=== PATIENT | female | born 1980 | race Caucasian/White ===

== ENCOUNTER 2022-11-06 10:14 | Emergency (ER) | payer OTHER, SELFPAY ==
[2022-11-06 10:46] VITALS: BP 118/74; PULSE 82; RESP 16; TEMP 36.6; O2SAT 97; BMI 26.5
[2022-11-06 11:19] VITALS: BP 135/84; PULSE 82; RESP 16; O2SAT 98
--- NOTE | 2022-11-06 11:19 | ED.SKABFB ---
HPI - Skin/Abscess/Foreign Bdy General Chief complaint: Skin/Abscess/Foreign Body Stated complaint: facial swelling Time Seen by Provider: 11/06/22 11:17 Source: patient, RN notes reviewed and old records reviewed Mode of arrival: ambulatory History of Present Illness HPI narrative: 41-year-old female with no significant past medical history presenting to the ED complaining of abscess to forehead noted 2 days ago, was seen at urgent care yesterday prescribed Keflex which she has taken 2 doses of however reports worsening discomfort/swelling noted this morning. Reports pus drainage from area. Denies fever/chills, headache, nausea/vomiting Related Data Previous Rx's Medication Instructions Recorded doxycycline hyclate 100 mg tablet 100 mg PO BID 7 days #14 tabs 11/06/22 Allergies Allergy/AdvReac Type Severity Reaction Status Date / Time No Known Allergies Allergy Verified 11/06/22 11:50 Review of Systems Review of Systems: Constitutional: No Fever, No Chills ENT/Mouth: No Ear Pain, No Nasal Congestion, No Sinus Pain, No Hoarseness, No sore throat, No Rhinorrhea, No Swallowing Difficulty Cardiovascular: No Chest Pain, No SOB Respiratory: No Cough, No Sputum, No Wheezing Gastrointestinal: No Nausea, No Vomiting, No Abdominal pain Musculoskeletal: No joint pain, No Myalgias, No Joint Swelling Skin: + Skin Lesions, No rash Neuro: No Weakness Yes all other systems are reviewed and are negative Constitutional: Constitutional: Reports as per HPI [facility] Past Medical History Attestation statement: The following information was validated with the patient. Source: old records reviewed Social History Social History (System 11/06/22 @ 11:50 by Maye Obregon) Smoked in Last 30 Days: No Use of substances other than those prescribed or required for medical reasons: No Advance Directives: No Physical Exam Vital Signs: Vital Signs: Last Vital Signs Temp 97.9 F 11/06/22 10:46 Pulse 82 11/06/22 11:19 Resp 16 11/06/22 11:19 BP 135/84 11/06/22 11:19 Pulse Ox 98 11/06/22 11:19 O2 Del Method Room Air 11/06/22 11:19 BMI result Body Mass Index 26.5 Const: General: cooperative, healthy appearing and no acute distress Orientation/consciousness: patient oriented x3 Limitations: no limitations HEENT: Head: Yes normal to inspection and Yes atraumatic Ears: hearing grossly normal bilaterally General nose exam: Normal external nose present Face and sinus: Yes normal facial exam Eyes: General: appearance normal, both eyes and all related structures Neck: Neck: Yes normal visual inspection and Yes no meningeal signs Resp: Effort & Inspection: normal respiratory effort and no respiratory distress Cardio: Rate: regular rate Skin: Other: + small indurated abscess noted to central upper forehead at hairline with mild surrounding swelling. Mildly tender to palpation. No fluctuance, surrounding erythema, no active drainage. No crepitus Rashes: no rashes Neuro: General: patient oriented x3, tone normal and no meningeal signs Gait exam (Neuro): Normal gait present Extrem: General: Yes normal to inspection Medications Administered Discontinued Medications Generic Name Dose Route Start Last Admin Trade Name Freq PRN Reason Stop Dose Admin Doxycycline Monohydrate 100 mg 11/06/22 11:33 11/06/22 11:53 Doxycycline Monohydrate 100 Mg Capsule PO 11/06/22 11:34 100 mg ONCE ONE Administration Ketorolac Tromethamine 30 mg 11/06/22 11:33 11/06/22 11:53 Ketorolac Tromethamine 30 Mg/Ml Vial IM 11/06/22 11:34 30 mg ONCE ONE Administration Medical Decision Making Medical Decision Making [facility] Narrative: 41-year-old female with no significant past medical history presenting to the ED complaining of abscess to forehead noted 2 days ago, was seen at urgent care yesterday prescribed Keflex which she has taken 2 doses of however reports worsening discomfort/swelling noted this morning. On exam vital signs stable, NAD, nontoxic appearing with physical exam as noted above with small indurated abscess to upper forehead. No need for I&D at this time. No appreciable cellulitis/erythema. Mild swelling. Low concern for deeper infection. Will add doxycycline to her regimen Results discussed with patient including worrisome signs and symptoms and strict return precautions, and when to return to the emergency department. They verbalized understanding and feel safe for discharge at this time. Differential Diagnosis Differential Diagnoses: The differential diagnosis associated with the presentation includes As above External Record Review External record reviewed: Inpatient record, Office record, Outpatient record, Prior outpatient labs, Prior outpatient radiology, Primary care record and Outside ED record Tests considered The following testing was considered but not selected: As above Prescription Management I considered prescription management with: Pain Medication and Antibiotic Discharge Plan Discharge Clinical Impression: Abscess of skin or subcutaneous tissue Patient Disposition: Home, Self-Care Instructions: Abscess (ED) Additional Instructions: Continue taking previously prescribed antibiotic, in addition start taking doxycycline Avoid the sun while on doxycycline/wear good sun block at this will make you sensitive to the sun Apply warm compresses to area If symptoms persist or worsen return to the ED Prescriptions: New doxycycline hyclate 100 mg tablet 100 mg PO BID 7 Days Qty: 14 0RF Referrals: Makayla Verma PA-C [Primary Care Provider] - 3 days Interventions: ED Discharge Assessment Last Done: 11/06/22 12:02 Discharge Date/Time: 11/06/22 12:03
[2022-11-06] MEDS: Doxycycline Monohydrate 100 MG CAPSULE PO (11:53)
[2022-11-06] MEDS: Ketorolac Tromethamine 30 MG/ML VIAL IM (11:53)
== END 2022-11-06 12:03 | disposition home or self-care (01) ==
PROVIDERS: Emergency Provider Emergency Medicine Emergency Medical Services; PCP Physician Assistant
DX: L02.01 Cutaneous abscess of face (principal); Z79.899 Other long term (current) drug therapy
CPT/HCPCS: 96372; 99284; J1885

== ENCOUNTER 2022-12-30 15:32 | Emergency (ER) | payer OTHER, SELFPAY ==
--- NOTE | ~2022-12-30 | CT_ITS ---
EXAMINATION: CT ABDOMEN AND PELVIS WITHOUT CONTRAST CLINICAL INFORMATION: Right lower quadrant pain COMPARISON: None available. TECHNIQUE: Multidetector volumetric imaging was performed from the superior aspect of the liver through the pubic symphysis. Sagittal and coronal reformatted images were obtained on the technologist's workstation. This CT examination was performed using dose optimization techniques as appropriate, variously including the following: *Automated exposure control *Adjustment of mA and/or kV according to patient size (this includes techniques or standardized protocols for targeted exams where dose is matched to indication/reason for exam; i.e. extremities or head) *Use of iterative reconstruction technique DLP: 400 mGy-cm FINDINGS: LUNG BASES: The visualized lung bases are unremarkable. LIVER, GALLBLADDER, AND BILIARY TREE: The liver is normal in size, shape, and attenuation. No focal hepatic lesion or biliary ductal dilatation is present. The gallbladder is unremarkable with no evidence of radiopaque gallstones, gallbladder wall thickening, or obvious pericholecystic inflammatory changes. PANCREAS: Unremarkable. SPLEEN: Unremarkable. ADRENAL GLANDS: Unremarkable. KIDNEYS AND URETERS: The kidneys are normal in size, shape, and attenuation. 4 mm stone in the lower pole the left kidney. No hydronephrosis. Normal right kidney. BLADDER: Unremarkable. GASTROINTESTINAL TRACT: The small and large bowel are unremarkable. The appendix is not seen. ABDOMINAL WALL: No significant hernia is appreciated. LYMPH NODES: Normal. VASCULAR: Unremarkable. PELVIC VISCERA: There is a complex partially solid partially cystic mass in the pelvis that measures approximately 6.6 cm. This is high attenuation. This is located centrally in the midline pelvis. More superiorly and to the right is a second 1.8 x 3.2 cm high attenuation soft tissue mass. There is a small amount of complex fluid seen in the pelvis. Hemorrhagic ovarian cyst, ovarian torsion and PID/ovarian abscess should be considered. The appendix is not identified and possible appendicitis with secondary pelvic abscess cannot be completely excluded. Follow-up pelvic ultrasound recommended. OSSEOUS STRUCTURES: Unremarkable. CT/CT abdomen pelvis wo IV con IMPRESSION: Complex partially solid partially cystic high attenuation mass in the pelvis measuring 6.6 cm and 1.8 x 3.2 cm. There is a small amount of complex fluid in the pelvis. Differential would include ovarian torsion, hemorrhagic ovarian cyst and PID/ovarian abscess. The appendix is not seen and possible periappendiceal abscess cannot be excluded. Follow-up pelvic ultrasound recommended with Doppler to exclude ovarian torsion. Small left renal stone. Fleischner guidelines were followed.
--- NOTE | ~2022-12-30 | US_ITS ---
EXAMINATION: US PELVIS OVARIAN DOPPLER US PELVIC AND TRANSVAGINAL CLINICAL INFORMATION: Right lower quadrant pain. Follow up pelvic mass. COMPARISON: Previous CT of the abdomen and pelvis from earlier the same day. TECHNIQUE: Ultrasound of the pelvis is performed using both transabdominal and transvaginal transducers along with Doppler. Transvaginal imaging is performed due to inadequate visualization transabdominally. FINDINGS: The uterus is surgically absent. There is a complex partially solid, partially cystic mass in the midline pelvis. This measures at least 7 x 5 x 6 cm. The solid component does not have flow and is concerning for an enlarged torsed ovary with cystic changes. It is uncertain whether this represents the right or left ovary. No fluid in the pelvis is appreciated by ultrasound. US/US pelvic ovarian doppler IMPRESSION: Complex partially solid, partially cystic mass with no flow. Appearance is concerning for a torsed ovary. Findings were communicated to Dr Summers by telephone on 12/30/2022 at 2138 hours
--- NOTE | ~2022-12-30 | US_ITS ---
EXAMINATION: US PELVIS OVARIAN DOPPLER US PELVIC AND TRANSVAGINAL CLINICAL INFORMATION: Right lower quadrant pain. Follow up pelvic mass. COMPARISON: Previous CT of the abdomen and pelvis from earlier the same day. TECHNIQUE: Ultrasound of the pelvis is performed using both transabdominal and transvaginal transducers along with Doppler. Transvaginal imaging is performed due to inadequate visualization transabdominally. FINDINGS: The uterus is surgically absent. There is a complex partially solid, partially cystic mass in the midline pelvis. This measures at least 7 x 5 x 6 cm. The solid component does not have flow and is concerning for an enlarged torsed ovary with cystic changes. It is uncertain whether this represents the right or left ovary. No fluid in the pelvis is appreciated by ultrasound. US/US pelvic and transvaginal IMPRESSION: Complex partially solid, partially cystic mass with no flow. Appearance is concerning for a torsed ovary. Findings were communicated to Dr Summers by telephone on 12/30/2022 at 2138 hours
--- NOTE | 2022-12-30 15:51 | ED_ITS ---
HPI - General Adult General Chief complaint: Abdominal Pain Stated complaint: Abdominal pain Time Seen by Provider: 12/30/22 21:25 Source: patient Mode of arrival: ambulatory Limitations: no limitations History of Present Illness HPI narrative: patient 42 years old with no significant past medical history noticed pain in right lower quadrant and suprapubic pain about 1 week ago when she was visiting [facility] was very severe pain felt like labor pain went to the urgent care did the x-ray and labs and sent her home after morphine patient vomited after morphine injection had nausea off and on and loose bowels no fever no chills no urinary symptoms pain got slightly improved but still having the pain patient came back yesterday and came here today because of the ongoing pain no fever no chills no vaginal bleed no history of ovarian cyst no relation of pain with food patient had hysterectomy for fibroids in 2019 Related Data Previous Rx's Medication Instructions Recorded doxycycline hyclate 100 mg tablet 100 mg PO BID 7 days #14 tabs 11/06/22 Allergies Allergy/AdvReac Type Severity Reaction Status Date / Time No Known Allergies Allergy Verified 12/30/22 15:56 Review of Systems 2 Review of Systems: Yes all other systems are reviewed and are negative [facility] Social History Social History Alcohol intake: current Alcohol intake frequency: holidays/special occasions only Physical Exam ED Vital Signs: Vital Signs - 24 hr 12/30/22 15:56 12/30/22 21:26 Temperature 97.5 F 99.2 F Pulse Rate 76 69 Respiratory Rate 18 16 Blood Pressure 124/82 115/76 Pulse Oximetry 99 99 Oxygen Delivery Method Room Air Room Air BMI result Body Mass Index 26.5 Appearance: Alert. Oriented X3. No acute distress. Eyes: PERRLA, No Nystagmus ENT: Pharynx normal. Oral Mucosa moist Neck: Normal inspection. Neck supple. CVS: Normal heart rate and rhythm. Pulses normal. Respiratory: No respiratory distress. Equal air entry bilateral, no wheezing/rales/rhonchi Abdomen: Soft tender suprapubic and right lower quadrant with guarding Bowel sounds are present, no mass palpable, no CVA tenderness Skin: Skin warm and dry. Normal skin color. Normal skin turgor. Extremities: No lower extremity edema. No calf tenderness Neuro: Oriented X 3. No motor deficit. No sensory deficit.No cerebellar signs , cranial nerves II-XII intact Course Course Course Narrative: This is an RME: Additional HPI, ROS, PE not included below will be deferred to primary provider. 42 year old female presenting with abdominal pain for one week. Patient recently returned from [facility]. Patinet reports it was right lower quadrant pain radiating to the back but now it is more in the lower abdomen. Plan: imaging Medications Administered Discontinued Medications Generic Name Dose Route Start Last Admin Trade Name J Carlos PRN Reason Stop Dose Admin Sodium Chloride 1,000 mls @ 999 mls/hr 12/30/22 21:40 12/30/22 22:58 Ns IV 12/30/22 22:40 999 mls/hr .Q1H1M ONE Administration Morphine Sulfate 4 mg 12/30/22 21:50 12/30/22 22:58 Morphine Sulfate 4 Mg/Ml Cartridge IVPUSH 12/30/22 21:51 4 mg ONCE ONE Administration Protocol Ondansetron HCl 4 mg 12/30/22 21:50 12/30/22 22:58 Ondansetron Hcl 4 Mg/2 Ml Vial IVPUSH 12/30/22 21:51 4 mg ONCE ONE Administration Medical Decision Making Medical Decision Making [facility] Narrative: 10 pm patient with right lower abdominal, suprapubic pain onset about 7 days ago workup showed possible torsion as there is no blood flow seen in the right ovary showed a complex partially solid and partially cystic mass 7x5x6 [address] case [address] Austin PACE not sure it just the plain ovarian torsion suspecting malignancy because of solid component of the cyst. Would like the patient to go to tertiary center for further evaluation and surgery case discussed with Dr. Vega at [facility] [place] accepted the patient for transfer Differential Diagnosis Differential Diagnoses: The differential diagnosis associated with the presentation includes ovarian torsion /ovarian cyst/appendicitis Admission/Observation Consideration of admission/observation: Escalation of care including admission/observation considered Consult Healthcare Provider Management of the patient was discussed with: Drafter Marine Dr. Avila came to see the patient Lab Data [facility] Lab Attestation statement: I reviewed the patient's lab results. 12/30/22 16:28 12/30/22 16:28 Labs: Lab Results 12/30/22 12/30/22 12/30/22 Range/Units 16:28 16:28 16:28 WBC 9.5 (4.8-10.8) X10*3/uL RBC 3.80 L (4.20-5.50) X10*6/uL Hgb 11.5 L (12.0-16.0) g/dl Hct 33.3 L (37.0-47.0) % MCV 87.6 (80.0-98.0) fL MCH 30.3 (27.0-33.0) pg MCHC 34.5 (31.0-35.0) g/dl RDW 13.2 (11.0-16.0) % Plt Count 403 H (160-400) X10*3/uL MPV 10.1 (9.4-12.3) fL Immature Gran % (Auto) 0.5 H (0.0-0.4) % Neut % (Auto) 75.5 H (45-73) % Lymph % (Auto) 15.2 L (20-40) % [place] % (Auto) 7.6 (2-11) % Eos % (Auto) 0.9 (0-4) % Baso % (Auto) 0.3 (0-2) % Lymph # (Auto) 1.5 (1.2-4.9) X10*3/uL [place] # (Auto) 0.7 (0.1-1.2) X10*3/uL Eos # (Auto) 0.1 (0.0-0.4) X10*3/uL Baso # (Auto) 0.0 (0.0-0.2) X10*3/uL Abs Immat Gran (auto) 0.05 H (0.00-0.03) X10*3/uL Absolute Neuts (auto) 7.2 (2.0-8.3) x10*3/uL Absolute Nucleated RBC 0.000 (0.0-0.012) X10*3/uL Nucleated RBC % (auto) 0.0 (0.0-0.2) /100WBC PT (11.1-13.3) SEC INR (0.9-1.1) Sodium 139 (135-145) mmol/L Potassium 3.9 (3.3-5.1) mmol/L Chloride 109 H (96-108) mmol/L Carbon Dioxide 22 (22-29) mmol/L Anion Gap 12 (12-20) BUN 13 (9-16) mg/dL Creatinine 0.84 (0.5-1.4) mg/dL Estim Creat Clear Calc 76.8 Estimated GFR > 60 Random Glucose 88 (60-115) mg/dL Lactic Acid (0.5-2.0) mmol/L Calcium 9.6 (8.4-10.2) mg/dL Magnesium 1.9 1.8 (1.6-2.6) mg/dL Total Bilirubin 0.6 (0.0-1.0) mg/dL AST 12 (5-31) U/L ALT 12 (0-31) U/L Alkaline Phosphatase 75 (39-117) U/L Total Protein 7.5 (6.5-8.0) g/dL Albumin 4.0 (3.5-5.0) g/dL Lipase 23 24 (8-78) U/L Beta HCG, Quant < 2 mIU/mL Blood Type Antibody Screen 12/30/22 12/30/22 12/30/22 Range/Units 21:58 21:58 22:09 WBC (4.8-10.8) X10*3/uL RBC (4.20-5.50) X10*6/uL Hgb (12.0-16.0) g/dl Hct (37.0-47.0) % MCV (80.0-98.0) fL MCH (27.0-33.0) pg MCHC (31.0-35.0) g/dl RDW (11.0-16.0) % Plt Count (160-400) X10*3/uL MPV (9.4-12.3) fL Immature Gran % (Auto) (0.0-0.4) % Neut % (Auto) (45-73) % Lymph % (Auto) (20-40) % [place] % (Auto) (2-11) % Eos % (Auto) (0-4) % Baso % (Auto) (0-2) % Lymph # (Auto) (1.2-4.9) X10*3/uL [place] # (Auto) (0.1-1.2) X10*3/uL Eos # (Auto) (0.0-0.4) X10*3/uL Baso # (Auto) (0.0-0.2) X10*3/uL Abs Immat Gran (auto) (0.00-0.03) X10*3/uL Absolute Neuts (auto) (2.0-8.3) x10*3/uL Absolute Nucleated RBC (0.0-0.012) X10*3/uL Nucleated RBC % (auto) (0.0-0.2) /100WBC PT 14.2 H (11.1-13.3) SEC INR 1.2 H (0.9-1.1) Sodium (135-145) mmol/L Potassium (3.3-5.1) mmol/L Chloride (96-108) mmol/L Carbon Dioxide (22-29) mmol/L Anion Gap (12-20) BUN (9-16) mg/dL Creatinine (0.5-1.4) mg/dL Estim Creat Clear Calc Estimated GFR Random Glucose (60-115) mg/dL Lactic Acid 0.9 (0.5-2.0) mmol/L Calcium (8.4-10.2) mg/dL Magnesium (1.6-2.6) mg/dL Total Bilirubin (0.0-1.0) mg/dL AST (5-31) U/L ALT (0-31) U/L Alkaline Phosphatase (39-117) U/L Total Protein (6.5-8.0) g/dL Albumin (3.5-5.0) g/dL Lipase (8-78) U/L Beta HCG, Quant mIU/mL Blood Type O Positive Antibody Screen NEGATIVE Radiology Impression Discussion of test interpretation with radiology: I discussed test interpretation with the radiologist and I have reviewed the radiologist's reading. Radiologist Impression: [address] [address] Ultrasound Report Signed Patient: Nneka Pelaez MR#: [id number] : 1980 Acct:[id number] Age/Sex: 42 / F ADM Date: 12/30/22 Loc: .ED Attending Dr: Ordering Physician: Naina Stark CNP Date of Service: 12/30/22 Procedure(s): US pelvic and transvaginal Accession Number(s): [id number] cc: Naina Stark CNP; Makayla Verma PA-C~ EXAMINATION:? US PELVIS OVARIAN DOPPLER US PELVIC AND TRANSVAGINAL CLINICAL INFORMATION:? Right lower quadrant pain. Follow up pelvic mass. COMPARISON: Previous CT of the abdomen and pelvis from earlier the same day. TECHNIQUE: Ultrasound of the pelvis is performed using both transabdominal and transvaginal transducers along with Doppler. Transvaginal imaging is performed due to inadequate visualization transabdominally. FINDINGS: The uterus is surgically absent. There is a complex partially solid, partially cystic mass in the midline pelvis. This measures at least 7 x 5 x 6 cm. The solid component does not have flow and is concerning for an enlarged torsed ovary with cystic changes. It is uncertain whether this represents the right or left ovary. No fluid in the pelvis is appreciated by ultrasound. US/US pelvic and transvaginal IMPRESSION: Complex partially solid, partially cystic mass with no flow. Appearance is concerning for a torsed ovary. ? Findings were communicated to Dr Smumers by telephone on 12/30/2022 at 2138 hours Dictated By: Tiffany Moses MD Signed By: <Electronically signed by Tiffany Moses MD in OV> 12/30/222147 DD/ 48 TD/TT:? Picc Nurse: [place] [id number] CT Scan Report Signed with Addenda Patient: Nneka Pelaez MR#: [id number] : 1980 Acct:[id number] Age/Sex: 42 / F ADM Date: 12/30/22 Loc: HO.ED Attending Dr: Ordering Physician: Dillan Jewell Date of Service: 12/30/22 Procedure(s): CT abdomen pelvis wo IV con Accession Number(s): [id number] cc: Dillan Jewell; Makayla Verma PA-C~ ADDENDUMAddendum: Findings were communicated to SALVADOR Rodas by telephone on 12/30/2022 at 8:00 PM. Addendum Dictated By: Tiffany Moses MD Addendum Signed By: 12/30/222009 Addendum Cosigned By: DD/ /16/1556 TD/TT: / EXAMINATION: CT ABDOMEN AND PELVIS WITHOUT CONTRAST? CLINICAL INFORMATION: Right lower quadrant pain? COMPARISON: None available. TECHNIQUE: Multidetector volumetric imaging was performed from the superior aspect of the liver through the pubic symphysis. Sagittal and coronal reformatted images were obtained on the technologist's workstation.? This CT examination was performed using dose optimization techniques as appropriate, variously including the following: *Automated exposure control *Adjustment of mA and/or kV according to patient size (this includes techniques or standardized protocols for targeted exams where dose is matched to indication/reason for exam; i.e. extremities or head) *Use of iterative reconstruction technique DLP: 400 mGy-cm FINDINGS: LUNG BASES: The visualized lung bases are unremarkable.? LIVER, GALLBLADDER, AND BILIARY TREE: The liver is normal in size, shape, and attenuation. No focal hepatic lesion or biliary ductal dilatation is present. The gallbladder is unremarkable with no evidence of radiopaque gallstones, gallbladder wall thickening, or obvious pericholecystic inflammatory changes.? PANCREAS: Unremarkable.? SPLEEN: Unremarkable.? ADRENAL GLANDS: Unremarkable.? KIDNEYS AND URETERS: The kidneys are normal in size, shape, and attenuation. 4 mm stone in the lower pole the left kidney. No hydronephrosis. Normal right kidney.? BLADDER: Unremarkable.? GASTROINTESTINAL TRACT: The small and large bowel are unremarkable. The appendix is not seen.? ABDOMINAL WALL: No significant hernia is appreciated.? LYMPH NODES: Normal. VASCULAR: Unremarkable. PELVIC VISCERA: There is a complex partially solid partially cystic mass in the pelvis that measures approximately 6.6 cm. This is high attenuation. This is located centrally in the midline pelvis. More superiorly and to the right is a second 1.8 x 3.2 cm high attenuation soft tissue mass. There is a small amount of complex fluid seen in the pelvis. Hemorrhagic ovarian cyst, ovarian torsion and PID/ovarian abscess should be considered. The appendix is not identified and possible appendicitis with secondary pelvic abscess cannot be completely excluded. Follow-up pelvic ultrasound recommended. OSSEOUS STRUCTURES: Unremarkable.? CT/CT abdomen pelvis wo IV con IMPRESSION: Complex partially solid partially cystic high attenuation mass in the pelvis measuring 6.6 cm and 1.8 x 3.2 cm. There is a small amount of complex fluid in the pelvis. Differential would include ovarian torsion, hemorrhagic ovarian cyst and PID/ovarian abscess. The appendix is not seen and possible periappendiceal abscess cannot be excluded. Follow-up pelvic ultrasound recommended with Doppler to exclude ovarian torsion. Small left renal stone. ? Fleischner guidelines were followed. Dictated By: Tiffany Moses MD Signed By: <Electronically signed by Tiffany Moses MD in OV> 12/30/221955 DD/ 17 TD/TT:? Picc Nurse: GOKUL Critical Care Time Critical Care Time Critical Care Time: Yes Total Critical Care Time: 45 Attestation: The patient was critically ill with a high probability of imminent or life threatening deterioration. I spent greater than 50 minutes of discontinuous time evaluating the patient,delivering critical care at the bedside, discussing and evaluating pertinent data with consultants. Critical care time does not include time spent performing separately billable procedures or teaching. Total time spent performing critical care was 45 minutes. Discharge Plan Discharge Clinical Impression: Ovarian torsion Patient Disposition: Xfer [facility] Transfer Details: [facility] [place] Wetu under Dr. Putnam for ovarian torsion Prescriptions: No Action doxycycline hyclate 100 mg tablet 100 mg PO BID 7 Days Qty: 14 0RF Interventions: Acute Care Transfer Worksheet (ED) Last Done: 12/30/22 23:35 Discharge Date/Time: 12/30/22 23:42
[2022-12-30 15:56] VITALS: BP 124/82; PULSE 76; RESP 18; TEMP 36.4; O2SAT 99; BMI 26.5
[2022-12-30 16:32] LABS: MANUAL DIFF FLAG NO
[2022-12-30 16:51] LABS: Alanine Aminotransferase 12 U/L (0-31); Alkaline Phosphatase 75 U/L (39-117); Anion Gap 12 (12-20); Aspartate Amino Transferase 12 U/L (5-31); Bilirubin Total 0.6 mg/dL (0.0-1.0); Blood Urea Nitrogen 13 mg/dL (9-16); Calcium 9.6 mg/dL (8.4-10.2); Carbon Dioxide 22 mmol/L (22-29); Chloride 109 mmol/L (96-108); Creatinine Clr Calc Pharmacy 76.8; Estimated Glomerular Filt Rate > 60; Glucose Random 88 mg/dL (60-115); Lipase 23 U/L (8-78); Magnesium 1.9 mg/dL (1.6-2.6); Potassium 3.9 mmol/L (3.3-5.1); Sodium 139 mmol/L (135-145); Total Protein 7.5 g/dL (6.5-8.0)
[2022-12-30 16:57] LABS: Lipase 24 U/L (8-78); Magnesium 1.8 mg/dL (1.6-2.6)
[2022-12-30 16:58] LABS: Basophils Percent Auto 0.3 % (0-2); Eosinophils Absolute Auto 0.1 X10*3/uL (0.0-0.4); Eosinophils Percent Auto 0.9 % (0-4); Hematocrit 33.3 % (37.0-47.0); Hemoglobin 11.5 g/dl (12.0-16.0); Imm Gran Abs Auto 0.05 X10*3/uL (0.00-0.03); Imm Gran Pct Auto 0.5 % (0.0-0.4); Lymphocytes Absolute Auto 1.5 X10*3/uL (1.2-4.9); Lymphocytes Percent Auto 15.2 % (20-40); Mean Corpuscular HGB Conc 34.5 g/dl (31.0-35.0); Mean Corpuscular Hemoglobin 30.3 pg (27.0-33.0); Mean Corpuscular Volume 87.6 fL (80.0-98.0); Mean Platelet Volume 10.1 fL (9.4-12.3); Monocytes Absolute Auto 0.7 X10*3/uL (0.1-1.2); Monocytes Percent Auto 7.6 % (2-11); Neutrophils Absolute Auto 7.2 x10*3/uL (2.0-8.3); Neutrophils Percent Auto 75.5 % (45-73); Platelet Count 403 X10*3/uL (160-400); Red Cell Distribution Width 13.2 % (11.0-16.0); White Blood Count 9.5 X10*3/uL (4.8-10.8)
[2022-12-30 17:03] LABS: HCG Quantitative < 2 mIU/mL
[2022-12-30 21:26] VITALS: BP 115/76; PULSE 69; RESP 16; TEMP 37.3; O2SAT 99
--- NOTE | 2022-12-30 21:56 | P.CONOB_ITS ---
COTTON HEADER - CN: HPI Data of Consult Consult date: 12/30/22 Primary Care Provider: Makayla Verma PA-C Consult Narrative Narrative: I was consulted on Nneka Pelaez is a 42 year old female presenting to the emergency room with? pain in the right lower quadrant and suprapubic pain about 1 week duration when the patient was in [facility] she developed acute very severe LV pain, she went to an urgent care where she had image and labs and was discharged home after morphine, since then the patient has been having persistent pelvic pain associated with nausea and vomiting off and on and loose bowels with no fever or chills, no other GI or symptom, no vaginal discharge cc:: CC: OB [facility] Social History Social History Alcohol intake: current Alcohol intake frequency: holidays/special occasions only Smoked in Last 30 Days: No Use of substances other than those prescribed or required for medical reasons: No Advance Directives: No Advance Directives Information Provided: Yes Patient : No Meds Allergies Allergy/AdvReac Type Severity Reaction Status Date / Time No Known Allergies Allergy Verified 12/30/22 15:56 Active Medications: Current Medications Sodium Chloride (Ns) 1,000 mls @ 999 mls/hr IV .Q1H1M ONE Stop: 12/30/22 22:40 COTTON HEADER Physical Exam Vitals Vital signs: Temp Pulse Resp BP Pulse Ox O2 Del Method 99.2 F 69 16 115/76 99 Room Air 12/30/22 21:26 12/30/22 21:26 12/30/22 21:26 12/30/22 21:26 12/30/22 21:26 12/30/22 21:26 BMI result Body Mass Index 26.5 Abdomen Auscultation/Inspection/Palpation: Tenderness, Guarding and Rebound tenderness Female Genitalia (Pelvic) Exam: Deferred COTTON HEADER - Results Labs 12/30/22 16:28 12/30/22 16:28 Labs: Short CBC 12/30/22 Range/Units 16:28 WBC 9.5 (4.8-10.8) X10*3/uL Hgb 11.5 L (12.0-16.0) g/dl Hct 33.3 L (37.0-47.0) % Plt Count 403 H (160-400) X10*3/uL BMP 12/30/22 16:28 Sodium 139 Potassium 3.9 Chloride 109 H Carbon Dioxide 22 BUN 13 Creatinine 0.84 Calcium 9.6 Liver Function 12/30/22 Range/Units 16:28 Total Bilirubin 0.6 (0.0-1.0) mg/dL AST 12 (5-31) U/L ALT 12 (0-31) U/L Alkaline Phosphatase 75 (39-117) U/L Albumin 4.0 (3.5-5.0) g/dL Imaging CT scan - pelvis: Radiologist's impression: ITS Impressions Abdomen/Pelvis CT 12/30/22 19:18 IMPRESSION: Complex partially solid partially cystic high attenuation mass in the pelvis measuring 6.6 cm and 1.8 x 3.2 cm. There is a small amount of complex fluid in the pelvis. Differential would include ovarian torsion, hemorrhagic ovarian cyst and PID/ovarian abscess. The appendix is not seen and possible periappendiceal abscess cannot be excluded. Follow-up pelvic ultrasound recommended with Doppler to exclude ovarian torsion. Small left renal stone. Fleischner guidelines were followed. Doppler Study Ultrasound 12/30/22 20:49 IMPRESSION: Complex partially solid, partially cystic mass with no flow. Appearance is concerning for a torsed ovary. Findings were communicated to Dr Summers by telephone on 12/30/2022 at 2138 hours Pelvic/Transvag US 12/30/22 20:49 IMPRESSION: Complex partially solid, partially cystic mass with no flow. Appearance is concerning for a torsed ovary. Findings were communicated to Dr Summers by telephone on 12/30/2022 at 2138 hours Assessment and Plan (1) Ovarian torsion: Status: Acute Plan Discussed the patient the following: Ultrasound showed 7 cm ovarian mass complex with cystic and solid components. The differential diagnosis includes the following but not limited to: benign and malignant ovarian neoplasm. Since there is no ovarian flow and there is suspicion of ovarian torsion, and given the findings on the abdominal exam including significant tenderness, rebound and guarding, I recommend surgical intervention liliam. Per ACOG guidelines, when a patient with a suspicious or persistent complex adnexal mass requires surgical evaluation, a physician trained to appropriately stage and debulk ovarian cancer should perform the operation. Surgical exploration should be performed in a hospital facility that has the necessary support and consultative services to optimize the patient?s outcome. When a malignant ovarian tumor is discovered incidentally, a gynecologic oncologist should be consulted intraoperatively. Because there is no gynecologic oncologist available on staff at [facility] , I recommend to be transferred liliam to [facility] or any other tertiary care center given the urgency of the clinical situation, where during surgery there is immediate access to a gynecologic oncologist intraoperatively in case there was any suspicion or evidence of malignancy. All questions answered, the patient verbalized understanding and agreed with the plan. Discussed the case with Dr. Summers Time Spent With Patient Time: Total time managing care of this patient today ____ minutes.
[2022-12-30 22:12] LABS: INTERNATIONAL NORM RATIO 1.2 (0.9-1.1); Prothrombin Time 14.2 SEC (11.1-13.3)
[2022-12-30 22:26] LABS: Lactic Acid 0.9 mmol/L (0.5-2.0)
[2022-12-30] MEDS: Morphine Sulfate 4 MG/ML CARTRIDGE IVPUSH (22:58)
[2022-12-30] MEDS: ondansetron HCL 4 MG/2 ML VIAL IVPUSH (22:58)
[2022-12-30] MEDS: 0.9 % Sodium Chloride 1,000 ML 999 ML IV (22:58)
--- NOTE | 2022-12-30 23:02 | PC.NURSE ---
20g IV access in left AC established. Intact and patent. Pt reports pain 5/10 at this time. Medications administer as per JUN. Labs drawn. awaiting EMS for transport to [facility]
--- NOTE | 2022-12-30 23:41 | PC.NURSE ---
Nurse to Nurse given to TYRONE Dobbs at [facility] at [facility].
== END 2022-12-30 23:42 | disposition short-term general hospital (02) ==
PROVIDERS: Physician Assistant; Emergency Provider Internal Medicine; PCP Physician Assistant
DX: N83.511 Torsion of right ovary and ovarian pedicle (principal); R10.31 Right lower quadrant pain; R11.2 Nausea with vomiting, unspecified; R10.2 Pelvic and perineal pain; Z79.899 Other long term (current) drug therapy
CPT/HCPCS: 36415; 74176; 76830; 76856; 80053; 83605; 83690; 83735; 84702; 85025; 85610; 86850; 86900; 86901; 93975; 96374; 96375; 99285; J2270; J2405

== ENCOUNTER → 2022-12-30 16:29 | Outpatient (BNV) | payer OTHER, SELFPAY | PROVIDERS: Emergency Provider Internal Medicine; PCP Physician Assistant; Visit Provider Obstetrics & Gynecology | DX: N83.519 Torsion of ovary and ovarian pedicle, unspecified side (principal) | CPT/HCPCS: 99283 ==

== ENCOUNTER 2023-05-13 10:22 | Emergency (ER) | payer BC, SELFPAY ==
--- NOTE | 2023-05-13 | ECG_ITS ---
Test Reason : PALPATATIONS Blood Pressure : / mmHG Vent. Rate : 072 BPM Atrial Rate : 072 BPM P-R Int : 142 ms QRS Dur : 092 ms QT Int : 400 ms P-R-T Axes : 040 035 013 degrees QTc Int : 438 ms Normal sinus rhythm Normal ECG No previous ECGs available Referred By: Generic ED Physician Electronically Signed By:GUILLAUME BOWSER
--- NOTE | ~2023-05-13 | XR_ITS ---
EXAMINATION: XR CHEST CLINICAL INFORMATION: Shortness of breath, chest pain COMPARISON: None available. TECHNIQUE: 2 views of the chest were obtained. FINDINGS: vascularity. LUNGS: Lungs are clear. No pneumothorax is seen. BONES: Bony skeleton is intact. XR/XR chest 2V IMPRESSION: Normal chest x-ray.
--- NOTE | ~2023-05-13 | CT_ITS ---
EXAMINATION: CT ANGIOGRAM OF THE CHEST WITH AND WITHOUT CONTRAST (CT PULMONARY ANGIOGRAM FOR PE) CLINICAL INFORMATION: Reason for Exam exertional dyspnea. Palpitations. cp. Elevated dimer COMPARISON: None available. TECHNIQUE: Prior to contrast administration, noncontrast localization images were obtained. Subsequently, multidetector volumetric imaging was performed from the thoracic inlet to below the diaphragms following the administration of 65 mL Omnipaque 350 intravenous contrast. No contrast reaction reported Sagittal, coronal, and MIP oblique sagittal reformatted images were obtained on the CT workstation, uploaded to PACS, and reviewed. This CT examination was performed using dose optimization techniques as appropriate, variously including the following: *Automated exposure control *Adjustment of mA and/or kV according to patient size (this includes techniques or standardized protocols for targeted exams where dose is matched to indication/reason for exam; i.e. extremities or head) *Use of iterative reconstruction technique Total exam dose-length product 218 mGy-cm FINDINGS: QUALITY OF STUDY/CONTRAST BOLUS: Satisfactory. PULMONARY ARTERIES: No pulmonary emboli. Main pulmonary arteries are normal caliber THORACIC AORTA: No aneurysm. No coronary calcification demonstrated LUNG: No abnormality the central airways. No consolidation or edema. PLEURA: No pleural effusion or pneumothorax. MEDIASTINUM: There are no enlarged lymph nodes. No suspicious abnormality esophagus. No evidence of septal bowing or right heart strain. CORONARY ARTERY CALCIFICATION: None visualized on this study. CHEST WALL/AXILLA: No axillary or internal mammary lymphadenopathy. OSSEOUS STRUCTURES: No acute or suspicious osseous abnormality. UPPER ABDOMEN: There is a round low attenuating 2.5 cm mass in the posteromedial aspect of hepatic segment 6. This was likely present and not significantly changed since 12/30/22. No reflux of contrast into the hepatic veins to suggest elevated right heart pressures. CT/CT angio chest PE protocol IMPRESSION: No pulmonary embolus demonstrated. No pneumonia or edema. 2.5 cm mass in hepatic segment 6. The attenuation is greater than expected for a cyst. Consider liver mass protocol MRI using hepatobiliary contrast agent (Eovist). VTE: negative
[2023-05-13 10:24] VITALS: BP 147/88; PULSE 70; RESP 18; TEMP 36.4; O2SAT 99; BMI 26.5
[2023-05-13 10:45] LABS: MANUAL DIFF FLAG NO
[2023-05-13 10:47] LABS: Basophils Absolute Auto 0.1 X10*3/uL (0.0-0.2); Basophils Percent Auto 0.8 % (0-2); Eosinophils Absolute Auto 0.3 X10*3/uL (0.0-0.4); Hematocrit 34.9 % (37.0-47.0); Imm Gran Abs Auto 0.05 X10*3/uL (0.00-0.03); Imm Gran Pct Auto 0.8 % (0.0-0.4); Mean Corpuscular HGB Conc 34.4 g/dl (31.0-35.0); Mean Corpuscular Hemoglobin 30.4 pg (27.0-33.0); Mean Corpuscular Volume 88.4 fL (80.0-98.0); Mean Platelet Volume 10.4 fL (9.4-12.3); Monocytes Absolute Auto 0.3 X10*3/uL (0.1-1.2); Neutrophils Absolute Auto 3.9 x10*3/uL (2.0-8.3); Neutrophils Percent Auto 59.4 % (45-73); Platelet Count 306 X10*3/uL (160-400); Red Blood Count 3.95 X10*6/uL (4.20-5.50); Red Cell Distribution Width 13.2 % (11.0-16.0); White Blood Count 6.5 X10*3/uL (4.8-10.8)
[2023-05-13 10:59] LABS: COVID-19 Test Negative (Negative); IDNOW Serial# 152EDE1D
[2023-05-13 11:03] LABS: IDNOW Serial# 08D9AD1C; Influenza A Negative (Negative); Influenza B2 Negative (Negative)
[2023-05-13 11:09] LABS: Alanine Aminotransferase 12 U/L (0-31); Albumin Level 3.9 g/dL (3.5-5.0); Alkaline Phosphatase 73 U/L (39-117); Anion Gap 12 (12-20); Aspartate Amino Transferase 11 U/L (5-31); Bilirubin Total 0.3 mg/dL (0.0-1.0); Blood Urea Nitrogen 22 mg/dL (9-16); Calcium 9.1 mg/dL (8.4-10.2); Carbon Dioxide 22 mmol/L (22-29); Chloride 108 mmol/L (96-108); Creatinine Clr Calc Pharmacy 59.8; Estimated Glomerular Filt Rate 55; Glucose Random 155 mg/dL (60-115); Magnesium 1.6 mg/dL (1.6-2.6); Potassium 3.7 mmol/L (3.3-5.1); Sodium 138 mmol/L (135-145); Total Protein 6.8 g/dL (6.5-8.0)
[2023-05-13 11:18] LABS: Troponin-I High Sensitivity < 2.7 ng/L (<3.5-17.0)
--- NOTE | 2023-05-13 13:17 | ED_ITS ---
HPI - General Adult General Chief complaint: Arrhythmia/Palpitations Stated complaint: Chest Pain Palpitations X 2 Days Time Seen by Provider: 05/13/23 13:05 Source: patient, RN notes reviewed and old records reviewed Mode of arrival: ambulatory History of Present Illness HPI narrative: 42-year-old female with no significant past medical history presenting to the ED complaining of headache, fatigue, generalized weakness, intermittent palpitations, intermittent chest pain, exertional dyspnea x1 week. Denies vision change/loss, nausea, vomiting, diarrhea, dysuria, oral OCPs, recent travel, history of clots, pedal edema. Admits headache improving today Related Data Previous Rx's Medication Instructions Recorded doxycycline hyclate 100 mg tablet 100 mg PO BID 7 days #14 tabs 11/06/22 Allergies Allergy/AdvReac Type Severity Reaction Status Date / Time No Known Allergies Allergy Verified 05/13/23 10:28 Review of Systems 2 Review of Systems: Constitutional: No Fever, No Chills, + fatigue, + malaise ENT/Mouth: No Ear Pain, No Nasal Congestion, No Sinus Pain, No Hoarseness, No sore throat, No Rhinorrhea, No Swallowing Difficulty Cardiovascular: + Chest Pain, No SOB, + exertional dyspnea Respiratory: No Cough, No Sputum, No Wheezing Gastrointestinal: No Nausea, No Vomiting, No Diarrhea, No Constipation, No Abdominal pain Genitourinary: No Dysuria, No Urinary Frequency, No Hematuria, No Flank Pain Musculoskeletal: No joint pain, No Myalgias, No Joint Swelling Skin: No Skin Lesions, No rash Neuro: + Weakness, No Numbness, No Paresthesias, + headache Yes all other systems are reviewed and are negative Constitutional: Constitutional: Reports as per HPI Neurologic: Denies Abnormal speech present [facility] Past Medical History Attestation statement: The following information was validated with the patient. Source: old records reviewed Onset Date is defined in the Problem List Problems that require an onset date and time if occurred within 24 hrs of arrival to the ED Aortic Dissection and Rupture; Neurologic impairment; Cardiopulmonary Arrest; Endotracheal Intubation; Insertion or Replacement of Mechanical Circulatory Assist Device Social History Social History Alcohol intake: current Alcohol intake frequency: does not drink Smoked in Last 30 Days: No Use of substances other than those prescribed or required for medical reasons: No Advance Directives: No Advance Directives Information Provided: Yes Patient : No Physical Exam ED Vital Signs: Vital Signs - 24 hr 05/13/23 10:24 05/13/23 13:31 05/13/23 14:55 Temperature 97.6 F 98.3 F Pulse Rate 70 71 72 Respiratory Rate 18 14 16 Blood Pressure 147/88 H 112/71 103/65 Pulse Oximetry 99 98 98 Oxygen Delivery Method Room Air Room Air Room Air 05/13/23 15:52 Temperature 98.3 F Pulse Rate 67 Respiratory Rate 16 Blood Pressure 109/72 Pulse Oximetry 100 Oxygen Delivery Method Room Air BMI result Body Mass Index 26.5 Const General: cooperative, healthy appearing and no acute distress Orientation/consciousness: patient oriented x3 Limitations: no limitations HENMT Head: Yes normal to inspection and Yes atraumatic Ears: hearing grossly normal bilaterally General nose exam: Normal external nose present Face and sinus: Yes normal facial exam Eyes General: appearance normal, both eyes and all related structures EOM: EOMs intact bilaterally Neck Neck: Yes normal visual inspection and Yes no meningeal signs Resp Effort & Inspection: normal respiratory effort and no respiratory distress Auscultation: clear to auscultation bilaterally, no crackles and no wheezes Cardio Rate: regular rate Heart sounds: S1 normal heart sound present and S2 normal heart sound present GI Inspection: Yes normal to inspection Palpation (GI): Soft to palpation, nontender, no guarding and not rigid Skin Rashes: no rashes Wounds: no wounds Neuro General: patient oriented x3, gait normal, tone normal, moves all extremities, no meningeal signs, no focal motor deficits and CN's II-XI intact bilaterally Cranial nerves: Yes CN's II-XII intact bilaterally Cognition (Neuro): normal cognition Speech: No Abnormal speech present Gait exam (Neuro): Normal gait present Motor exam (neuro): 5/5 motor strength present throughout and no tremor noted Extrem General: Yes normal to inspection and Yes no pedal edema Course Course Course Narrative: -1515--no leukocytosis. BUN mildly elevated to 22. Troponin negative -UA with RBCs & contaminated, not infected. COVID and flu negative XR chest 2V IMPRESSION: Normal chest x-ray. - D-dimer 250 >> will obtain CTA to rule out PE -1615--CT angio chest PE protocol IMPRESSION: No pulmonary embolus demonstrated. No pneumonia or edema. 2.5 cm mass in hepatic segment 6. The attenuation is greater than expected for a cyst. Consider liver mass protocol MRI using hepatobiliary contrast agent (Eovist). VTE: negative > results discussed with patient. Discussed mass seen in liver and needed close follow-up for further management/investigation Medications Administered Discontinued Medications Generic Name Dose Route Start Last Admin Trade Name Freq PRN Reason Stop Dose Admin Acetaminophen/Butalbital/Caffeine 1 tab 05/13/23 13:22 05/13/23 13:29 Butalb/Acetamin/Caff 50/325/40 Tablet PO 05/13/23 13:23 1 tab ONCE ONE Administration Medical Decision Making Medical Decision Making MDM Narrative: 42-year-old female with no significant past medical history presenting to the ED complaining of headache, fatigue, generalized weakness, intermittent palpitations, intermittent chest pain, exertional dyspnea x1 week. On exam vital signs stable, NAD, nontoxic appearing, physical exam as noted above, lungs CTA, no focal deficits, no pedal edema. Concern for viral illness vs metabolic/infectious etiology vs thyroid dysfunction vs PE. Unlikely SAH, meningitis/encephalitis, DVT, dissection Plan: EKG, labs, UA, CXR, viral testing Please refer to course for remaining clinical decision making, interpretation of labs/imaging results, and discussions with consultants and/or family members. Differential Diagnosis Differential Diagnoses: The differential diagnosis associated with the presentation includes As above Admission/Observation Consideration of admission/observation: Escalation of care including admission/observation considered Lab Data [facility] Lab Attestation statement: I reviewed the patient's lab results. 05/13/23 10:40 05/13/23 10:40 Labs: Lab Results 05/13/23 05/13/23 05/13/23 Range/Units 10:40 13:33 14:35 WBC 6.5 (4.8-10.8) X10*3/uL RBC 3.95 L (4.20-5.50) X10*6/uL Hgb 12.0 (12.0-16.0) g/dl Hct 34.9 L (37.0-47.0) % MCV 88.4 (80.0-98.0) fL MCH 30.4 (27.0-33.0) pg MCHC 34.4 (31.0-35.0) g/dl RDW 13.2 (11.0-16.0) % Plt Count 306 (160-400) X10*3/uL MPV 10.4 (9.4-12.3) fL Immature Gran % (Auto) 0.8 H (0.0-0.4) % Neut % (Auto) 59.4 (45-73) % Lymph % (Auto) 30.0 (20-40) % [place] % (Auto) 5.0 (2-11) % Eos % (Auto) 4.0 (0-4) % Baso % (Auto) 0.8 (0-2) % Lymph # (Auto) 2.0 (1.2-4.9) X10*3/uL [place] # (Auto) 0.3 (0.1-1.2) X10*3/uL Eos # (Auto) 0.3 (0.0-0.4) X10*3/uL Baso # (Auto) 0.1 (0.0-0.2) X10*3/uL Abs Immat Gran (auto) 0.05 H (0.00-0.03) X10*3/uL Absolute Neuts (auto) 3.9 (2.0-8.3) x10*3/uL Absolute Nucleated RBC 0.000 (0.0-0.012) X10*3/uL Nucleated RBC % (auto) 0.0 (0.0-0.2) /100WBC D-Dimer High Sensitivty 250 NG/ML Sodium 138 (135-145) mmol/L Potassium 3.7 (3.3-5.1) mmol/L Chloride 108 (96-108) mmol/L Carbon Dioxide 22 (22-29) mmol/L Anion Gap 12 (12-20) BUN 22 H (9-16) mg/dL Creatinine 1.08 (0.5-1.4) mg/dL Estim Creat Clear Calc 59.8 Estimated GFR 55 Random Glucose 155 H (60-115) mg/dL Calcium 9.1 (8.4-10.2) mg/dL Magnesium 1.6 (1.6-2.6) mg/dL Total Bilirubin 0.3 (0.0-1.0) mg/dL AST 11 (5-31) U/L ALT 12 (0-31) U/L Alkaline Phosphatase 73 (39-117) U/L Troponin I High Sens < 2.7 (<3.5-17.0) ng/L Total Protein 6.8 (6.5-8.0) g/dL Albumin 3.9 (3.5-5.0) g/dL Urine Color Yellow Urine Appearance Clear Urine pH 5.5 (5.0-9.0) Ur Specific [place] 1.020 (1.005-1.025) Urine Protein Negative (Neg-Trace) mg/dL Urine Glucose (UA) Negative (Negative) mg/dL Urine Ketones Negative (Negative) mg/dL Urine Blood Moderate (2+) H (Negative) Urine Nitrite Negative (Negative) Ur Leukocyte Esterase Negative (Negative) Urine RBC >20 H (0-2) /HPF Urine WBC 0-5 (0-5) /HPF Ur Squamous Epith Cells 11-20 (0-2) /HPF Urine Bacteria Trace (None Seen) Hyaline Casts 0-2 (0-2) /LPF COVID-19 (ASTRID) Negative (Negative) COVID-19 Clin Com See Note Influenza Type A (JEWEL) Negative (Negative) Influenza Type B (JEWEL) Negative (Negative) Influenza A & B Note See Note Independent Interpretation I performed an independent interpretation of an: EKG (My interpretation EKG normal sinus rhythm rate of 72. CT interval 142. QTC 438. No STEMI ) Radiology Impression Discussion of test interpretation with radiology: I have reviewed the radiologist's reading. External Record Review External record reviewed: Inpatient record, Office record, Outpatient record, Prior outpatient labs, Prior outpatient radiology, Primary care record and Outside ED record Tests considered The following testing was considered but not selected: As above Discharge Plan Discharge Clinical Impression: Exertional dyspnea, Chest pain, Headache Patient Disposition: Still a Patient Instructions: Chest Pain (DC), Dyspnea (ED) Additional Instructions: Your blood work is reassuring. Your x-ray is unremarkable Please close follow-up with your doctor and Cardiology If symptoms persist or worsen return to the ED Prescriptions: No Action doxycycline hyclate 100 mg tablet 100 mg PO BID 7 Days Qty: 14 0RF Referrals: Makayla Verma PA-C [Primary Care Provider] - 3 days
[2023-05-13] MEDS: Butalb/Acetamin/Caff 50/325/40 TABLET 1 TAB PO (13:29)
[2023-05-13 13:31] VITALS: BP 112/71; PULSE 71; RESP 14; O2SAT 98
--- NOTE | 2023-05-13 13:35 | PC.NURSE ---
Pt reports b/l temporal headache since denies nausea or vomiting, no sound sensitivity or photophobia reported. Pt states CP and SOB has resolved at this time. VSS. Breathing even and unlabored. Skin pwd. Medicated as charted and UA sent.
[2023-05-13 13:43] LABS: Appearance Urine Clear; Color Urine Yellow; Glucose Urine UA Negative (Negative); Leukocyte Esterase Urine Negative (Negative); Nitrite Urine Negative (Negative); PH 5.5 (5.0-9.0); UMIC TRIGGER UACC YES; Urine Blood Moderate (2+) (Negative); Urine Ketones Negative (Negative); Urine Protein Negative (Neg-Trace)
[2023-05-13 13:46] LABS: Bacteria Urine Trace (None Seen); Hyaline Casts Urine 0-2 /LPF (0-2); RBC Urine >20 /HPF (0-2); WBC Urine 0-5 /HPF (0-5)
[2023-05-13 14:47] LABS: D Dimer High Sensitivity 250 NG/ML
[2023-05-13 14:55] VITALS: BP 103/65; PULSE 72; RESP 16; TEMP 36.8; O2SAT 98
[2023-05-13 15:52] VITALS: BP 109/72; PULSE 67; RESP 16; TEMP 36.8; O2SAT 100
== END 2023-05-13 16:47 | disposition home or self-care (01) ==
PROVIDERS: Physician Assistant; Emergency Provider Emergency Medicine; PCP Physician Assistant
DX: R07.9 Chest pain, unspecified (principal); R51.9 Headache, unspecified; R06.09 Other forms of dyspnea; Z11.52 Encounter for screening for COVID-19
CPT/HCPCS: 36415; 71046; 71275; 80053; 81001; 83735; 84484; 85025; 85379; 87502; 87635; 93005; 99284; 99285

== ENCOUNTER → 2023-05-13 10:35 | Outpatient (BNV) | payer BC, SELFPAY | PROVIDERS: Emergency Provider Emergency Medicine; PCP Physician Assistant; Visit Provider Internal Medicine | DX: R00.2 Palpitations (principal) | CPT/HCPCS: 93010 ==

== ENCOUNTER 2024-06-23 12:58 | Outpatient (AMB) | payer BC, SELFPAY ==
--- NOTE | 2024-06-23 13:06 | MHC.PC.OV ---
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 Career Services Required: No Allergies No Known Allergies Allergy (Verified 06/23/24 13:06) Medication List - Last Reconciled 06/23/24 by Makayla Verma PA-C doxycycline hyclate 100 mg PO BID 7 days estradiol 1 patch transdermal 2XW secukinumab (Cosentyx UnoReady Pen) 300 mg subcut Q4W spironolactone 100 mg PO DAILY Tobacco use date assessed: 06/23/24 Dental Screening Dental Screen Date: 06/23/24 Did you have a dental visit in the last 12 months?: No Did you have a dental problem in the last 6 months where you did not have access to dental care?: No Was dental information given to patient?: Patient has dentist 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 Derm: She has a history of hidradenitis suppurativa (HS). The patient reports being diagnosed with HS between 2020 and 2021. Initially, she was treated with Humira, which was later switched to Cosentyx. While Cosentyx initially provided symptom relief, she experienced a flare-up in the past month, indicating diminished effectiveness with recent injections. The cost of Cosentyx, at $200 [id number] per month, was discussed as a potential barrier to increasing dosage frequency. she states that her tin cutter would like her to get a CBC in a TB test. 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 States that she needs to have a vitamin-D level checked. The patient has a post-hysterectomy status, with a history of right ovarian torsion that occurred during a vacation, resulting in her having only one ovary left. Mammogram: Up-to-date. Does these at [facility]. Colonoscopy: We will be due this summer. She was actually supposed to get 1 done 5 years ago but with the pandemic it was canceled. She states at that point it was recommended because she was getting rectal bleeding. She still does sometimes get some rectal bleeding with constipation. She has not had this in a couple years. Health Maintenance - Vitamin D level assessment - Complete blood count (CBC) for dermatological purposes - Comprehensive metabolic panel - Tuberculosis screening using QuantiFERON-TB Gold test - Cholesterol and thyroid function tests - Due for mammogram follow-up (every six months) - Pre-scheduling for a colonoscopy at age 44, preferred at [facility] Social History - Employed at the [employer] [place] [facility] with concerns of potential job layoffs - Lives with her son and frequently cares for her grandchildren, including an born in April - Recently , indicating significant personal stress in recent years - No current dating activities; finding single life less stressful Review of Systems - Gastrointestinal: Denies blood in the stool except for previous stress-related bleeding episodes. Physical Exam General: Well developed, well nourished, in no acute distress. Appears stated age. Head: Normocephalic, atraumatic. Eyes: Pupils are equal, round and reactive to light and accommodation. Conjunctivae are clear. Vision grossly normal. Ears: Tympanic membranes clear bilaterally, external auditory canal within normal limits Nose: Patent, without discharge. Mouth: There are no ulcers or lesions noted. No inflammation, no post nasal drip, no plaques nor exudates. Neck: Supple, no adenopathy or thyromegaly. Lungs: Clear to auscultation bilaterally. No rales, rhonchi or wheeze noted. Good air flow in all albrecht. Heart: Regular rate and rhythm. No murmurs, click, rubs or gallops are noted. Abdomen: Bowel sounds present in all quadrants. The abdomen is soft, nontender, with no masses or organomegaly noted. No hernias are noted. Musculoskeletal: Joints are nontender, without swelling, redness, or effusions. Range of motion is observed to be normal. Pulses: Peripheral pulses are equal and palpable bilaterally. Extremities: No clubbing, cyanosis nor edema is noted. Neurologic: Gait and station normal. Cranial Nerves 2-12 intact. Motor strength grossly symmetrical and intact. No sensory loss. Balance normal. Skin: No rashes, ulcers, or lesions noted. Turgor is good. Skin color is good. Hair and nails are without abnormalities. Psych: Normal eye contact, affect and mood appropriate, and normal interactions. Patient is alert and appropriate to context. Results Plan - Plan for follow-up blood tests including vitamin D, CBC, comprehensive metabolic panel, and thyroid function tests. - Coordination for tuberculosis screening with the QuantiFERON-TB Gold test. - Cosentyx dosage and its adequacy will continue to be monitored given recent flare-up issues. - Encourage the patient to arrange the missed mammogram session and schedule a colonoscopy as she approaches the recommended age. - Vigilance towards menstrual cycle changes given her post-hysterectomy status. Patient was informed and verbally consented to the use of an ambient scribe for clinic note documentation during this visit. Discussion Notes During the session, we reviewed the management of her hidradenitis suppurativa, including the current treatment with Cosentyx, and the patient's recurrence of symptoms despite medication. We discussed the financial implications of increasing the medication's dose frequency. We also emphasized the importance of continued health maintenance screenings, including mammography and preparation for upcoming colonoscopy. Discussions included reviewing the patient?s hormone and vitamin D levels and addressing routine blood work to prevent potential complications. We highlighted the importance of regular follow-up visits to monitor the patient?s condition and reassured her about the progress of her care despite complex medical history and recent psychosocial stresses. Patient Instructions - Complete scheduled laboratory tests as instructed, especially the vitamin D and comprehensive blood panel. - Proceed with arrangements for a follow-up mammogram and prepare for a colonoscopy at the recommended age. - Discuss any concerns regarding job security with her current healthcare provider and seek support if required. - Continue monitoring for HS flare-ups and inform if the current treatment becomes insufficient. - Report any new or worsening symptoms immediately. [facility] Medical History (Updated 06/23/24 @ 13:30 by Makayla Verma PA-C) H/O mammogram Surgical History (Updated 06/23/24 @ 13:24 by Fay George CMA) History of right oophorectomy H/O tympanostomy Hx of tubal ligation H/O: hysterectomy Family History (Updated 06/23/24 @ 13:21 by Fay George CMA) Mother Hyperlipidemia Maternal Grandmother Diabetes Social History Housing: Apartment Alcohol intake: current Alcohol intake frequency: does not drink Patient Tobacco Use Status: Never used Tobacco e-Cigarette/Vaping Use: Never Used Second Hand Smoke Exposure: No service: No Current occupational status: employed 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 1. Little interest or pleasure in doing things: several days 2. Feeling down, depressed, or hopeless: not at all 3. Trouble falling or staying asleep, or sleeping too much: nearly every day 4. Feeling tired or having little energy: nearly every day 5. Poor appetite or overeating: nearly every day 6. Feeling bad about yourself - or that you are a failure or have let yourself or your family down: not at all 7. Trouble concentrating on things, such as reading the newspaper or watching television: several days 8. Moving or speaking so slowly that other people could have noticed. Or the opposite - being so fidgety or restless that you have been moving around a lot more than usual: not at all 9. Thoughts that you would be better off or of hurting yourself in some way: not at all Total score: 11 Depression Screening Interpretation: Positive Depression Screening Follow-up: Follow-up Visit Requested Depression Screening Done: Yes 34817 - PHQ-9 Billing: Yes Source: Developed by Drs. Trey Felipe, Fiorella Jarrett, Jayesh Sharif and colleagues, with an educational da from [employer]. Thrive Questionnaire Date Thrive assessed: 06/20/24 I am a: Patient What is your living situation today?: I have a steady place to live Within the past 12 months, did the food you bought not last and you didn't have the money to get more?: Never true Within the past 12 months, did you worry whether your food would run out before you got money to buy more?: Never true Do you have trouble paying for medicines?: No Do you have trouble getting transportation to medical appointments?: No Do you have trouble paying your heating and electricity bill?: No Do you have trouble taking care of your child, family member or friend?: No Do you have trouble with day-to-day activities such as bathing, preparing meals, shopping, managing finances, etc.?: No Are you currently unemployed and looking for a job?: No Are you interested in more education?: No Please select the resources that you would like help with: None Currently or been in a relationship where the following occur: No concerns reported THRIVE Score: 0 AUDIT C Alcohol Use Questionnaire (AUDIT-C) 1. How often do you have a drink containing alcohol?: Never Total Score: 0 DEBBIE-7 AMB Questionnaire DEBBIE-7 Date DEBBIE - 7 assessed: 06/23/24 Feeling nervous, anxious, or on edge: 1 = Several days Not being able to stop or control worryin = Several days Worrying too much about different things: 1 = Several days Trouble relaxin = More than half the days Being so restless that it is hard to sit still: 0 = Not at all Becoming easily annoyed or irritable: 1 = Several days Feeling afraid as if something awful might happen: 0 = Not at all Total DEBBIE-7 score (0-4 normal; 5-9 mild; 10-14 moderate; 15-21 severe): 6 Source: Developed by Drs. Trey Felipe, Fiorella Jarrett, Jayesh Sharif and colleagues, with an educational da from [employer]. DEBBIE-7 Assessment Billing DEBBIE-7 Assessment Tool: DEBBIE-7 Assessment 44457 Physical exam (Primary Care) PHQ-9: PHQ-9 Score PHQ-9: Total score 11 06/23/24 13:08 Depression Screening Interpretation: Positive Depression Screening Follow-up: Follow-up Visit Requested Thrive Assessment: Date of Thrive Assessment Date Thrive assessed 06/20/24 06/23/24 13:08 Currently or been in a relationship where the following occur: No concerns reported Coding Level of Care Code Est Pt Prev Care 40-64y(32023) Diagnoses Routine general medical examination at a health care facility Z00.00 Hidradenitis suppurativa of multiple sites L73.2 Vitamin D deficiency E55.9 Additional Codes PHQ-9 - 08687 - PHQ-9 Billing: Yes ([id number]) DEBBIE-7 Assessment Billing - DEBBIE-7 Assessment Tool: DEBBIE-7 Assessment 00638 ([id number]) Assessment & Plan Assessment & Plan (1) Routine general medical examination at a health care facility: Code(s): Z00.00 - Encounter for general adult medical examination without abnormal findings (2) Hidradenitis suppurativa of multiple sites: Code(s): L73.2 - Hidradenitis suppurativa Category: Medical (3) Vitamin D deficiency: Code(s): E55.9 - Vitamin D deficiency, unspecified Category: Medical Plan . Orders: Orders Comprehensive Parnell. Panel Fast Today E55.9 - Vitamin D deficiency, unspecified, L73.2 - Hidradenitis suppurativa, Z00.00 - Encounter for general adult medical examination without abnormal findings Complete Blood Count Auto Diff Today E55.9 - Vitamin D deficiency, unspecified, L73.2 - Hidradenitis suppurativa, Z00.00 - Encounter for general adult medical examination without abnormal findings Lipid Panel Today E55.9 - Vitamin D deficiency, unspecified, L73.2 - Hidradenitis suppurativa, Z00.00 - Encounter for general adult medical examination without abnormal findings TSH reflex Free T4 Today E55.9 - Vitamin D deficiency, unspecified, L73.2 - Hidradenitis suppurativa, Z00.00 - Encounter for general adult medical examination without abnormal findings Vitamin B12 and Folate Today E55.9 - Vitamin D deficiency, unspecified, L73.2 - Hidradenitis suppurativa, Z00.00 - Encounter for general adult medical examination without abnormal findings Magnesium Today E55.9 - Vitamin D deficiency, unspecified, L73.2 - Hidradenitis suppurativa, Z00.00 - Encounter for general adult medical examination without abnormal findings Vitamin D 25-OH Total Today E55.9 - Vitamin D deficiency, unspecified, L73.2 - Hidradenitis suppurativa, Z00.00 - Encounter for general adult medical examination without abnormal findings T Spot TB Today E55.9 - Vitamin D deficiency, unspecified, L73.2 - Hidradenitis suppurativa, Z00.00 - Encounter for general adult medical examination without abnormal findings, Z11.1 - Encounter for screening for respiratory tuberculosis Referrals Open Access Screening Colonoscopy Referral Z12.11 - Encounter for screening for malignant neoplasm of colon
--- OUTSIDE RECORDS SUMMARY | 2024-06-23 15:25 | XMS_ITS | Data Portability ---
Author Organization [facility] Address [address] [place] [address] Assessment Encounter Date Assessment Date Assessment LastModified by Organization Details LastModified Time 01/01/2024 01/01/2024 I spent 45 minutes of hexf-sm-mkoc counselling and care coordination time with the patient. This includes reviewing medical records (medical, surgical, family and social history); updating medication and allergy information in the electronic health record; and ordering labs, medications, and education materials to continue patient care. Not available 01/01/2024 12:26:36 01/29/2024 01/29/2024 I spent 15 minutes of ptzt-cz-kxih counselling and care coordination time with the patient. This includes reviewing medical records (medical, surgical, family and social history); updating medication and allergy information in the electronic health record; and ordering labs, medications, and education materials to continue patient care. Not available 01/29/2024 13:14:21 03/11/2024 03/11/2024 I spent 10 minutes of sbcr-oc-scma counselling and care coordination time with the patient. This includes reviewing medical records (medical, surgical, family and social history); updating medication and allergy information in the electronic health record; and ordering labs, medications, and education materials to continue patient care. Not available 03/11/2024 13:08:57 05/06/2024 05/06/2024 I spent 15 minutes of wppc-sm-sdpz counselling and care coordination time with the patient. This includes reviewing medical records (medical, surgical, family and social history); updating medication and allergy information in the electronic health record; and ordering labs, medications, and education materials to continue patient care. Not available 05/06/2024 13:30:50 Plan of Treatment Reminders Order Date Submit Date Provider Last Modified By Organization Details Last Modified Time Details Appointments [id number] 2024 10:00A M Stefanie Galvan NP Not available Not available Not available Lab vitamin D, 25-hydrox y, total, serum 2024 025 [facility], [address] [place], [address], 06/03/2024 04:13:40 vitamin D, 25-hydrox y, total, serum 2023 024 [facility], [address] [place], [address], 01/29/2024 09:56:05 lh + FSH, serum 2023 024 [facility], [address] [place], [address], 01/29/2024 09:56:01 testoster one, free + total, serum 2023 024 [facility], [address] [place], [address], 01/29/2024 09:56:02 vitamin D, 25-hydrox y, total, serum [address] [facility], [address] [place], [address], 01/29/2024 15:03:57 CBC 2023 024 [facility], [address] [place], [address], 01/29/2024 09:55:59 vitamin B12, quant, blood 2023 024 [facility], [address] [place], [address], 01/29/2024 15:03:08 TSH, serum or plasma [address] [facility], [address], [place], [address], 01/29/2024 15:03:19 T4, free, serum 2023 024 [facility], [address] [place], [address], 01/29/2024 09:56:03 iron + TIBC + ferritin, serum 2023 024 [facility], [address] [place], [address], 02/11/2024 12:35:48 T3, total, serum 2023 024 [facility], [address] [place], [address], 01/29/2024 09:56:06 Referral None recorded. Procedures None recorded. Surgeries None recorded. Imaging None recorded. Medication Orders estradiol 0.05 mg/24 hr semiweekl y transderm al patch 2024 025 [id number], [address] [place], [address], 05/06/2024 13:30:37 progester one micronize d 100 mg capsule 2024 025 [id number], [address] [place], [address], 05/06/2024 13:30:37 estradiol 0.05 mg/24 hr semiweekl y transderm al patch 2023 024 [id number], [address] [place], [address], 03/11/2024 13:09:28 progester one micronize d 100 mg capsule 2023 024 [id number], [address] [place], [address], 03/11/2024 13:09:29 estradiol 0.05 mg/24 hr semiweekl y transderm al patch 2023 024 [id number], [address] [place], [address], 01/29/2024 13:18:19 progester one micronize d 100 mg capsule 2023 024 [id number] [address] [place], [address], 01/29/2024 13:18:19 progester one micronize d 100 mg capsule 2023 024 [id number] [address] [place], [address], 01/01/2024 12:26:49 estradiol 0.01% (0.1 mg/gram) vaginal cream 2023 024 [id number] [address] [place], [address], 01/01/2024 12:26:46 estradiol 0.0375 mg/24 hr semiweekl y transderm al patch 2023 024 [id number] [address] [place], [address], 03/11/2024 13:09:13 Patient TargetsNo targets recorded. Patient Instructions Encounter Date Encounter Id Patient Instructions Last Modified By Organization Details Last Modified Time 01/01/2024 [id number] Perimenopause [facility] Not availa ble 01/01/2024 12:26:33 Weight & Body Changes [facility] Not available 01/01/2024 12:26:32 Brain Fog & Cognition [facility] Not available 01/01/2024 12:26:32 Sleep Disruption [facility] Not available 01/01/2024 12:26:32 Any requested follow-up visits are listed below in the Plan of Care section. Go directly to the [facility] central scheduler at [email or web address] to book a time. Not available 01/01/2024 08:26:47 It was a pleasur e to meet with you today! We discussed your health concerns related to hormonal balance issues, possibly due to menopause, following your hysterectomy last year. --------- Your Care Plan --------- Together, we decided that you would: - Start using an estrogen patch (0.0375 mg) on your lower abdomen, buttocks, or upper thighs, changing it twice a week (every 3 to 4 days). This patch is absorbed through the skin directly to your bloodstream, providing a more even distribution of the medication. It is expected to help with hot flashes, libido, mood, skin and hair changes, and joint pain. You may experience some breast tenderness for a couple of days when you first start using it. - Start taking oral progesterone at bedtime every night. This is expected to help with sleep, brain fog, and mood. Some people report some drowsiness, but this varies from person to person. - Use an estrogen cream for vaginal dryness. This cream is inserted into the vagina and also rubbed on the outside to increase the estrogen locally in the vaginal tissue. You will use it once a night for 14 days and then twice a week thereafter. - Go to [facility] in [place] to have the following blood work drawn prior to our next session: hormone levels, testosterone level, vitamin D, vitamin B12, and thyroid. This will help us identify any underlying conditions that may be contributing to your symptoms. - Follow-up appointment scheduled for January 28 at 1:00 pm to monitor your progress and adjust treatment as needed. Please remember to rotate the patch from left to right when you change it. The patch should stay on through showering, swimming, and sweating. If the edges peel up due to clothing rubbing against it, you can put a little bandaid over it to keep it down. Most people report feeling some improvement within a week of starting hormone replacement therapy. However, we will meet again in 4 weeks to see how you're doing and adjust your dose if necessary. If you experience any severe side effects or if your symptoms worsen, please seek immediate medical attention. If you have any questions or concerns related to your care plan or overall health, please reach out to us. Please carefully review the care plan we have decided upon, specific information regarding your medication, and important details about your treatment detailed above. Thank you for trusting us with your care! Today we reviewed options for treating common symptoms of menopause. These options include hormonal medications, non hormonal medications, integrative therapies and lifestyle modifications. Menopause symptoms vary from woman to woman. Some women get no symptoms, but others have many. Intensity and duration also vary and can last on average 5-10 years. HRT may help with many menopausal symptoms. It is FDA approved for the treatment of hot flashes, vaginal symptoms, osteoporosis, and for those in early or premature menopause. HRT is associated with relief of symptoms and improvement in bone health. When started close to the age of menopause, HRT reduces cardiovascular risk and has potential benefits for cognitive health. Here are the latest recommendations from the Menopause Society: https://www.menopau se.org/docs/default -source/professiona veronique/melissa-deciding -vznbd-lc-6248.pdf Hormone therapy most often involves the combination of estrogen and progestogen. As with any drug there are some potential risks associated with hormone therapy. There are concerns of associated health risks with HRT including risks related to breast cancer, uterine cancer, gallbladder disease, and dementia. Many of these concerns are related to older types of hormones that are no longer recommended today and some of these concerns differ depending on the component of hormones (i.e., estrogen vs progestogen) and the mode of delivery. Some studies have suggested that some types of HRT may increase the risk of heart attack, stroke, and blood clots. If you develop chest pain, difficulty breathing, or symptoms suggestive of a stroke please seek care immediately. Today we reviewed your personal history including specific risks and benefits of hormone therapy for you. Based on this shared decision making, we recommend HRT to you as a reasonable and helpful therapy. If you have additional questions related to health risks associated with HRT, please discuss with your clinician. Please know that HRT requires fine-tuning and an individualized approach. We? l l plan to adjust your therapy if needed to address your symptoms. We will meet in 4-6 weeks to check in about your new regimen. Please reach out if you need to meet sooner. Not available 01/01/2024 13:28:27 01/29/2024 [id number] Any requested follow-up visits are listed below in the Plan of Care section. Go directly to the [facility] central scheduler at [email or web address] to book a time. Not available 01/29/2024 13:12:17 It was a pleasur e to meet with you today, Lynn! We discussed your health concerns related to menopause, including mood changes, sleep issues, brain fog, and hot flashes. --------- Your Care Plan --------- Together, we decided that you would: - Increase your estrogen patch dosage to 0.05 to help improve your mood and energy levels. This adjustment is based on your feedback that while you've seen some improvement, you've also experienced some leveling out and a return of tiredness. - Continue with your current progesterone dosage as it seems to be helping with your sleep and brain fog. - You mentioned that you still experience mild hot flashes, particularly when you're active. We hope that the increased estrogen dosage will also help manage this symptom. - You've been taking Vitamin D supplements and your recent lab results show that your Vitamin D levels are within the normal range, albeit on the lower side. Since you've previously experienced high Vitamin D levels, we decided that you should continue with your current regimen without any changes. - We've scheduled a follow-up appointment for 6 weeks from now, on March 11, to assess how you're doing with the increased estrogen dosage. Please remember to rock picker your new prescription for the estrogen patch and your refills for the progesterone from [facility] in [place]. If you have any questions or concerns, or if your symptoms worsen or do not improve, please don't hesitate to reach out to me via the patient portal. Please carefully review the care plan we have decided upon, specific information regarding your medication, and important details about your treatment detailed below. Thank you for trusting us with your care! Stefanie Galvan, [facility] ADDITIONAL INFORMATION: Today we reviewed options for treating common symptoms of menopause. These options include hormonal medications, non hormonal medications, integrative therapies and lifestyle modifications. Menopause symptoms vary from woman to woman. Some women get no symptoms, but others have many. Intensity and duration also vary and can last on average 5-10 years. HRT may help with many menopausal symptoms. It is FDA approved for the treatment of hot flashes, vaginal symptoms, osteoporosis, and for those in early or premature menopause. HRT is associated with relief of symptoms and improvement in bone health. When started close to the age of menopause, HRT reduces cardiovascular risk and has potential benefits for cognitive health. Here are the latest recommendations from the Menopause Society: https://menopause.o rg/patient-educatio n/menopause-topics/ hormone-therapy Hormone therapy most often involves the combination of estrogen and progestogen. As with any drug there are some potential risks associated with hormone therapy. There are concerns of associated health risks with HRT including risks related to breast cancer, uterine cancer, gallbladder disease, and dementia. Many of these concerns are related to older types of hormones that are no longer recommended today and some of these concerns differ depending on the component of hormones (i.e., estrogen vs progestogen) and the mode of delivery. Some studies have suggested that some types of HRT may increase the risk of heart attack, stroke, and blood clots. If you develop chest pain, difficulty breathing, or symptoms suggestive of a stroke please seek care immediately. Today we reviewed your personal history including specific risks and benefits of hormone therapy for you. Based on this shared decision making, we recommend HRT to you as a reasonable and helpful therapy. If you have additional questions related to health risks associated with HRT, please discuss with your clinician. Please know that HRT requires fine-tuning and an individualized approach. We? l l plan to adjust your therapy if needed to address your symptoms. We will meet in 4-6 weeks to check in about your new regimen. Please reach out if you need to meet sooner. Not available 01/29/2024 13:19:57 03/11/2024 [id number] Any requested follow-up visits are listed below in the Plan of Care section. Go directly to the [facility] central scheduler at [email or web address] to book a time. Not available 03/11/2024 11:46:58 It was a pleasur e to meet with you today! We discussed your health concerns related to fatigue and difficulty falling asleep. --------- Your Care Plan --------- Together, we decided that you would: - Continue using the estrogen patch at the current dosage of 0.05. We will reassess this dosage in about 6 to 8 weeks to see if it needs to be adjusted. - Increase your progesterone dosage to 200mg to help with your sleep issues. This will be done by taking two 100mg capsules. If you find this makes you too drowsy or you don't like it, you can go back down to the previous dosage. - Resume taking your wayv-bif-xnktmog vitamin D supplement as your recent lab results showed your vitamin D levels were on the lower end of normal. We will recheck your vitamin D levels in about 8 to 12 weeks. - Schedule a follow-up appointment for Thursday, May 06 to assess your progress and make any necessary adjustments to your treatment plan. Please carefully review the care plan we decided upon, specific information regarding your medication, and important details about your treatment detailed below. Thank you for trusting us with your care! Stefanie Galvan, [facility] ADDITIONAL INFORMATION: Today we reviewed options for treating common symptoms of menopause. These options include hormonal medications, non hormonal medications, integrative therapies and lifestyle modifications. Menopause symptoms vary from woman to woman. Some women get no symptoms, but others have many. Intensity and duration also vary and can last on average 5-10 years. HRT may help with many menopausal symptoms. It is FDA approved for the treatment of hot flashes, vaginal symptoms, osteoporosis, and for those in early or premature menopause. HRT is associated with relief of symptoms and improvement in bone health. When started close to the age of menopause, HRT reduces cardiovascular risk and has potential benefits for cognitive health. Here are the latest recommendations from the Menopause Society: https://menopause.o rg/patient-educatio n/menopause-topics/ hormone-therapy Hormone therapy most often involves the combination of estrogen and progestogen. As with any drug there are some potential risks associated with hormone therapy. There are concerns of associated health risks with HRT including risks related to breast cancer, uterine cancer, gallbladder disease, and dementia. Many of these concerns are related to older types of hormones that are no longer recommended today and some of these concerns differ depending on the component of hormones (i.e., estrogen vs progestogen) and the mode of delivery. Some studies have suggested that some types of HRT may increase the risk of heart attack, stroke, and blood clots. If you develop chest pain, difficulty breathing, or symptoms suggestive of a stroke please seek care immediately. Today we reviewed your personal history including specific risks and benefits of hormone therapy for you. Based on this shared decision making, we recommend HRT to you as a reasonable and helpful therapy. If you have additional questions related to health risks associated with HRT, please discuss with your clinician. Please know that HRT requires fine-tuning and an individualized approach. We? l l plan to adjust your therapy if needed to address your symptoms. We will meet in 4-6 weeks to check in about your new regimen. Please reach out if you need to meet sooner. Not available 03/11/2024 13:09:58 05/06/2024 [id number] Any requested follow-up visits are listed below in the Plan of Care section. Go directly to the [facility] central scheduler at [email or web address] to book a time. Not available 05/05/2024 15:39:16 It was a pleasur e to meet with you today, Lynn! We discussed your health concerns related to sleep issues and the management of your other symptoms. --------- Your Care Plan --------- Together, we decided that you would: - Continue taking your progesterone at the current dosage of 200 milligrams. This medication is intended to help manage your symptoms, including sleep issues. - Start taking magnesium glycinate, which is available over the counter. This supplement can help improve sleep. Start with a dose of 200 milligrams and you can increase up to 400 milligrams if needed. Please note that this is different from magnesium citrate, which is used for constipation. - Improve your sleep hygiene. This includes avoiding screen time right before bed. While you mentioned that you don't drink alcohol, it's also generally recommended to avoid alcohol before bed to improve sleep quality. - Monitor your sleep patterns and note if there are any correlations with periods of increased stress. This can help us better understand and manage your sleep issues. - Get your vitamin D levels rechecked. We discussed that you've been taking vitamin D and have noticed increased energy during the day, but still experience a crash period in the evening. Checking your vitamin D levels will help us determine if any adjustments need to be made to your dosage. - Follow up with me in 3 months, specifically on Thursday, July 29 at 1 o'clock Eastern. We will review your progress and make any necessary adjustments to your treatment plan. - Contact me at any time if you have any questions or concerns about your treatment plan. Please carefully review the care plan we have decided upon, specific information regarding your medication, and important details about your treatment detailed below. Thank you for trusting us with your care! Stefanie Galvan, [employer] Not available 05/06/2024 13:30:46 Reason for Referral None Reported. Results Created Date Observation Date Name Description Value Unit Range Abnormal Flag Note LastModifiedBy Organization Detail LastModifiedTime 01/26/2001/26/2024 CBC, PLATE LET, NO DIFFE RENTI AL WBC 9.9 x10e3 /uL 3.4-10 .8 normal Not Available [facility] ([facility]) [address] [place], [address], 01/29/2024 09:55:59 01/26/2001/26/2024 CBC, PLATE LET, NO DIFFE RENTI AL RBC 4.41 x10e6 /uL 3.77-5 .28 normal Not Available [facility] ([facility]) [address] [place], [address], 01/29/2024 09:55:59 01/26/2001/26/2024 CBC, PLATE LET, NO DIFFE RENTI AL hemoglobin 13.7 g/dL 11.1-1 5.9 normal Not Available [facility] ([facility]) [address] [facility], [place], [address], 01/29/2024 09:55:59 01/26/2001/26/2024 CBC, PLATE LET, NO DIFFE RENTI AL hematocrit 41.1 % 34.0-4 6.6 normal Not Available [facility] ([facility]) [address] [facility], [place], [address], 01/29/2024 09:55:59 01/26/2001/26/2024 CBC, PLATE LET, NO DIFFE RENTI AL MCV 93 fL 79-97 normal Not Available [facility] ([facility]) [address] [facility], [place], [address], 01/29/2024 09:55:59 01/26/2001/26/2024 CBC, PLATE LET, NO DIFFE RENTI AL MCH 31.1 pg 26.6-3 3.0 normal Not Available [facility] ([facility]) [address] [facility], [place], [address], 01/29/2024 09:55:59 01/26/2001/26/2024 CBC, PLATE LET, NO DIFFE RENTI AL MCHC 33.3 g/dL 31.5-3 5.7 normal Not Available [facility] ([facility]) [address] [place], [address], 01/29/2024 09:55:59 01/26/2001/26/2024 CBC, PLATE LET, NO DIFFE RENTI AL RDW 13.3 % 11.7-1 5.4 Not Available [facility] ([facility]) [address] [facility], [place], [address], 01/29/2024 09:55:59 01/26/2001/26/2024 CBC, PLATE LET, NO DIFFE RENTI AL platelets 377 x10e3 /uL 150-45 0 normal Not Available [facility] ([facility]) [address] [facility], [place], [address], 01/29/2024 09:55:59 01/26/2001/26/2024 CBC, PLATE LET, NO DIFFE RENTI AL NRBC FURNITURE MOVER Not Available [facility] ([facility]) [address] [facility], [place], [address], 01/29/2024 09:55:59 01/26/2001/27/2024 IRON AND TIBC iron bind.cap.(TI BC) 296 ug/dL 250-45 0 normal Not Available [facility] ([facility]) [address] [facility], [place], [address], 01/29/2024 09:56:01 01/26/2001/27/2024 IRON AND TIBC UIBC 195 ug/dL 131-42 5 normal Not Available [facility] ([facility]) [address] [place], [address], 01/29/2024 09:56:01 01/26/2001/27/2024 IRON AND TIBC iron 101 ug/dL 27-159 normal Not Available [facility] ([facility]) [address] [place], [address], 01/29/2024 09:56:01 01/26/2001/27/2024 IRON AND TIBC iron saturation 34 % 15-55 normal Not Available [facility] ([facility]) [address] [place], [address], 01/29/2024 09:56:01 01/26/2001/27/2024 FSH AND LH LH 2.0 mIU/m L normal Adult Femal e Range Folli cular phase 2.4 - 12.6 Ovula tion phase 14.0 - 95.6 Lutea l phase 1.0 - 11.4 Postm enopa usal 7.7 - 58.5 Not Available [facility] ([facility]) [address] [place], [address], 01/29/2024 09:56:01 01/26/2001/27/2024 FSH AND LH FSH 3.8 mIU/m L Adult Femal e Range Folli cular phase 3.5 - 12.5 Ovula tion phase 4.7 - 21.5 Lutea l phase 1.7 - 7.7 Postm enopa usal 25.8 - 134.8 Not Available [facility] ([facility]) [address] [place], [address], 01/29/2024 09:56:01 01/26/2001/27/2024 TESTO STERO NE,FR EE AND TOTAL testosterone 5 NG/dL 4-50 normal Not Available [facility] ([facility]) [address] [place], [address], 01/29/2024 09:56:02 01/26/2001/27/2024 TESTO STERO NE,FR EE AND TOTAL free testosterone (direct) 1.6 pg/mL 0.0-4. 2 Not Available [facility] ([facility]) [address] [place], [address], 01/29/2024 09:56:02 01/26/2001/27/2024 THYRO XINE (T4) FREE, DIREC T T4,free(dire ct) 1.15 NG/dL 0.82-1 .77 normal Not Available [facility] ([facility]) [address] [place], [address], 01/29/2024 09:56:03 01/26/2001/27/2024 TSH TSH 1.640 uIU/m L 0.450- 4.500 normal Not Available [facility] ([facility]) [address] [place], [address], 01/29/2024 09:56:05 01/26/2001/27/2024 VITAM IN D, 25-HY DROXY vitamin D, 25-hydroxy 39.6 NG/mL 30.0-1 00.0 Vitam in D defic iency has been defin ed by the Insti tute of Medic ine and an Endoc rine Socie ty pract ice guide line as a level of serum 25-OH vitam in D less than 20 ng/mL (1,2) . The Endoc rine Socie ty went on to furth er defin e vitam in D insuf ficie ncy as a level betwe en 21 and 29 ng/mL (2). 1. IOM (Inst itute of Medic ine). 2010. Dieta ry refer ence kala es for calci um and D. Cheyenne dennis [place]: [facility] . 2. Jazzy chen MF, Joanie chan [place], Marie off-F errar i MEYER, et al. Evalu ation , treat ment, and preve ntion of vitam in D defic iency : an Endoc rine Socie ty clini neeraj pract ice guide line. JCEM. 2010; 96(7) :1911 -30. Not Available [facility] ([facility]) [address] [facility], [place], [address], 01/29/2024 09:56:05 01/26/20 24 01/27/2024 TRIIO DOTHY MEQLUIADES E (T3) triiodothyro nine (T3) 111 NG/dL 71-180 normal Not Available [facility] ([facility]) [address] [place], [address], 01/29/2024 09:56:06 01/26/20 24 01/29/2024 VITAM IN B12 vitamin B12 463 pg/mL 232-12 45 normal Not Available [facility] [address], [place], [address], 01/29/2024 09:56:07 01/26/20 24 01/27/2024 CHARLES TIN ferritin 102 NG/mL 15-150 normal Not Available [facility] ([facility]) [address] [place], [address], 01/29/2024 09:56:08 Result Notes None recorded. Problems Name Problem SNOMED Code Status Onset Date Resolution Date Notes Provider Name and Address Organization Details Recorded Time Menopausal symptom 64525837 Active 2023 Stefanie Gal[place] [address] [address], [facility] 4 08:26:48 Fatigue 81165423 Active 2023 Stefanie Gal[place] [address]Winnie Alaniz [place] [address], [facility] 4 12:19:41 Reduced libido 0436769 Active 2023 SHAYLA Middleton [place] [address], [facility] 4 12:22:43 Health education given 239169965 Active 2023 SHAYLA Middleton [place] [address], [facility] 4 12:26:06 Perimenopausal disorder 958788822 Active 2023 SHAYLA Middleton [place] [address], [facility] 4 13:28:22 Disturbance in sleep behavior 97296547 Active 2023 [place] [address], [facility] 4 13:19:49 Vitamin D deficiency 32199423 Active 2023 SHAYLA Middleton [place] [address], [facility] 4 13:10:11 Insomnia 020518350 Active 2024 SHAYLA Middleton [place] [address], [facility] 13:29:24 Problem Notes None recorded. Procedures Surgical History Date Name Laterality Status Provider Name and Address Organization Details Recorded Time 08/26/19 Date of Last [place] [address] [address] [place], , [facility] 01/01/2024 12:00:36 04/27/19 Date of Last [place] [address] [address] [place], , [facility] 01/01/2024 12:00:36 [place] [address] [place], [place], , [facility] 01/29/2024 13:21:03 Imaging Results None recorded. Procedure Notes None recorded. Medical Equipment None Reported. Allergies No known drug allergies Medications Name Sig Start Date Stop Date Status Note LastModified by Organization Details LastModified Time spironolact one 100 mg tablet TAKE ONE TABLET DAILY active Not Available Not Available No t Available metronidazo le 500 mg tablet TAKE 1 TABLET BY MOUTH EVERY 12 HOURS FOR 7 DAYS 03/11 completed Not Available Not Available Not Available estradiol 0.05 mg/24 hr semiweekly transdermal patch Apply 1 patch twice a week by transderm al route for 84 days. 2024 active Not Available Not Available Not Avai lable doxycycline monohydrate 100 mg capsule TAKE 1 CAPSULE BY MOUTH TWICE A DAY 05/06 completed Not Available Not Available Not Available flurbiprofe n 100 mg tablet TAKE 1 TABLET BY MOUTH TWICE A DAY NEEDED FOR MODERATE PAIN active Not Available Not Available No t Available estradiol 0.01% (0.1 mg/gram) vaginal cream INSERT 1 APPLICATO RFUL EVERY DAY BY VAGINAL ROUTE AT BEDTIME FOR 14 DAYS. active Not Available Not Available No t Available estradiol 0.0375 mg/24 hr semiweekly transdermal patch Apply 1 patch twice a week by transderm al route for 28 days. 03/11 completed Not Available Not Available Not Available progesteron e micronized 100 mg capsule Take 2 capsules every day by oral route at bedtime for 90 days. 2024 active Not Available Not Available Not Avai lable Humira 40 mg/0.8 mL subcutaneou s syringe kit active Not Available Not Available Not Available lactulose 10 gram/15 mL oral solution TAKE 15 ML (1 TABLESPOO N) NEEDED ORALLY ONCE A DAY 1 DAYS active Not Available Not Available No t Available Xifaxan 550 mg tablet TAKE 1 TABLET BY MOUTH THREE TIMES A DAY FOR 14 DAYS 03/11 completed Not Available Not Available Not Available Humira(CF) Pen 80 mg/0.8 mL subcutaneou s kit active Not Available Not Available Not Available Probitoic Digestive Support (6 strain) 10 billion cell-100 mg capsule active Not Available Not Available Not Available Cosentyx UnoReady Pen 300 mg/2 mL subcutaneou s active Not Available Not Available Not Available vitamin D2-vitamin K1 active Not Available Not Available Not Available Vitals Date Recorded Body height Body mass index (BMI) Body weight Provider Name and Address Organization Details Last Updated DateTime 01/01/2024 157.48 cm 27.3 kg/m2 63578.26 [place] [address] [place], [address] 01/01/2024 08:27:01 Date Recorded Body height Body mass index (BMI) Body weight Provider Name and Address Organization Details Last Updated DateTime 01/29/2024 157.48 cm 27.3 kg/m2 [address].26 [place] [address] [address] [facility] [address] 01/29/2024 13:12:33 Date Recorded Body height Body mass index (BMI) Body weight Provider Name and Address Organization Details Last Updated DateTime 03/11/2024 157.48 cm 27.3 kg/m2 34494.26 [place] [address] [address] [facility] [address] 03/11/2024 11:53:12 Social History Question Answer Notes LastModified by Organizat ion Details LastModified Time Tobacco Smoking [place] [address] [place], [address], [facility] 01/29/2024 13:20:25 What Is Your Level Of Alcohol Consumption? None Information not available 01/29/2024 Sex: Female Functional Status None recorded. Mental Status None recorded. Family History Relationship Description Onset Age of this Age Resolved Age Notes LastModified by Organization Details LastModified Time Father No current problems or disability Not available 12/31 12:02:27 Mother No current problems or disability Not available 12/31 12:02:27 Medical History Condition Response Other Y Gynecological History Statement/Question Response Date of Last Pap Smear 04/27/2023 Current Control Method Hysterectom y Date of Last Mammogram 08/26/2023 Date of LMP 06/11/2018 Approximate Obstetrics History GPAL:G 0 P 0 0 0 0 Past Encounters Encounter ID Performer Location Encounter Start Date Encounter Closed Date Diagnosis/Indication Diagnosis SNOMED-CT Code Diagnosis ICD10 Code Diagnosis Note [id number] Darcie Moses MD Main Office [address] [place] [address] 01/01/2024 11:06:25 01/05/2024 08:20:53 Perimenopausal disorder 425451605 N95.9 - Patient is experienci ng symptoms consistent with perimenopa usal disorder, including mood changes, weight gain (10-15 pounds, primarily in the midsection ), mild hot flashes, night sweats, fatigue, brain fog, skin and hair changes, moderate changes to libido, and vaginal dryness.- Educated patient on the hormonal changes during perimenopa use and the impact on symptoms.- Initiated hormone replacemen t therapy (HRT) with an estrogen patch (0.0375 mg) and oral progestero ne at the lowest dose.- Estrogen patch to be applied to the lower abdomen, buttocks, or upper thighs, rotating sites every 3-4 days.- Progestero ne capsule to be taken at bedtime to aid with sleep and brain fog.- Prescribed vaginal estrogen cream for vaginal dryness: insert vaginally once a night for 14 days, then twice a week, with additional applicatio n to the external vaginal area for comfort.- Ordered lab tests to check hormone levels, testostero ne, vitamin D, vitamin B12, and thyroid function at [facility], [facility] location.- Follow-up appointmen t scheduled for January 28 at 1:00 PM to assess response to treatment and adjust dosages if necessary. For more informatio n regarding common questions about the estradiol patch, watch this short video from our Chief Clinical Officer, Dr. Nuñez. You will need to copy the following link into your browser to access the video: [email or web address] more informatio n regarding common questions about progestero ne, watch this short video from our Chief Clinical Officer, Dr. Nuñez. You will need to copy the following link into your browser to access the video: [email or web address] course, if you have further questions after watching, please reach out and I will be happy to support you. The patient is experienci ng significan t symptoms related to hormonal changes that impact their quality of life and ability to function profession ally and/or personally . We reviewed lifestyle modificati ons, integrativ e therapies, hormonal options as well as other medication s used to treat common menopausal symptoms. Pt was informed that, as with any drug, there are some potential risks associated with HRT. We discussed that some types of HRT may increase the risk of heart attack, stroke, and blood clots. Patient is counseled on concerning signs and symptoms and instructed to immediatel y seek care if these develop. We discussed potential health risks that may be associated with HRT including risks related to breast cancer, uterine cancer, gallbladde r disease, dementia and others. Many of these concerns are related to older types of hormones that are no longer recommende d today and some of these concerns differ depending on the component of hormones (estrogen vs progestero ne) and the mode of delivery. After review of the potential benefits of HRT, the alternativ es and the risks of therapy this patient prefers a trial of HRT. Based on this shared decision making HRT therapy will be offered. Vitamin D deficiency 347 45677 P95.9 - Patient has a history of vitamin D deficiency and inconsiste nt supplement use.- Ordered lab tests to re-evaluat e current vitamin D levels.- Advised patient on the importance of consistent vitamin D supplement ation. Disturbance in mood 6054 1323 R45.86 - Patient scored severe depression and severe anxiety on screening tools.- Discussed the impact of hormonal changes on mood.- Initiated HRT with estrogen and progestero ne to help stabilize mood.- Educated patient on the potential benefits of HRT for mood stabilizat ion.- Follow-up in 4 weeks to monitor mood changes and adjust treatment as needed. Difficulty sleeping 3013 43988 G47.9 - Patient reports difficulty sleeping at night and excessive fatigue during the day.- Initiated oral progestero ne at bedtime to improve sleep quality.- Educated patient on the potential benefits of progestero ne for sleep.- Follow-up in 4 weeks to assess improvemen t in sleep and adjust treatment if necessary. Fatigue 89457843 R53.83 - Patient reports feeling very fatigued and drowsy throughout the day.- Patient reports a significan t decrease in energy since having a hysterecto my with unilateral oophorecto my one year ago. Reduced libido 6342393 R 68.82 - Patient reports a decreased libido since having a hysterecto my with unilateral oophorecto my one year ago. Health edu cation given [id number] N95.9 [id number] Darcie Moses MD Main Office [address] [place] [address] 01/29/2024 12:03:58 02/01/2024 10:01:24 Perimenopausal disorder 727505719 N95.9 - Patient has been on estrogen patch and progestero ne therapy.- Noted improvemen t in symptoms initially, but energy levels have plateaued. - Mild hot flashes persist, exacerbate d by physical activity.- Current estrogen dose to be increased to 0.05 mg to address mood and energy levels.- Progestero ne therapy to be continued as it has improved sleep.- Lab results reviewed: Vitamin D level is 39.6 ng/mL (normal range: 30-100 ng/mL), on the lower side of normal.- Patient advised to continue monitoring Vitamin D levels, no immediate supplement ation required as previous levels were higher.- Prescripti ons for the new estrogen patch and progestero ne refills sent to [facility] in [place].- Follow-up appointmen t scheduled for March 11. The patient is experienci ng significan t symptoms related to hormonal changes that impact their quality of life and ability to function profession ally and/or personally . We reviewed lifestyle modificati ons, integrativ e therapies, hormonal options as well as other medication s used to treat common menopausal symptoms. Pt was informed that, as with any drug, there are some potential risks associated with HRT. We discussed that some types of HRT may increase the risk of heart attack, stroke, and blood clots. Patient is counseled on concerning signs and symptoms and instructed to immediatel y seek care if these develop. We discussed potential health risks that may be associated with HRT including risks related to breast cancer, uterine cancer, gallbladde r disease, dementia and others. Many of these concerns are related to older types of hormones that are no longer recommende d today and some of these concerns differ depending on the component of hormones (estrogen vs progestero ne) and the mode of delivery. After review of the potential benefits of HRT, the alternativ es and the risks of therapy this patient prefers to continue with HRT. Based on this shared decision making HRT therapy will be continued. Disturbance in mood 1499 2533 R45.86 - Mood has improved with current hormone therapy; patient reports being able to manage social interactio ns better.- Estrogen dose increased to 0.05 mg to further improve mood stability. - Patient educated on potential side effects of increased estrogen dose and advised to report any adverse effects.- Follow-up in 6 weeks to reassess mood and overall response to adjusted hormone therapy. Disturbanc e in sleep behavior 35268930 G47.9 - Sleep has improved with current progestero ne therapy; patient reports better sleep quality with occasional difficulty falling asleep.- Progestero ne therapy to be continued at current dose.- Patient advised to maintain sleep hygiene practices and monitor for any changes in sleep patterns.- Follow-up in 6 weeks to evaluate sleep quality and effectiven ess of ongoing treatment. COMPLEMENT KARI SUPPORT FOR SLEEP MELATONIN: 1mg can help with sleep onset, as a supplement , or from Sour Gee juice. MAGNESIUM GLYCINATE: 300-500 mg helps greatly with sleep quality when taken before bed. It calms the nervous system. In higher doses it is also a great laxative - but if you are having loose stools either take a smaller dose, or split the dose between morning and evening. NATURAL LAVENDER ESSENTIAL OIL in a diffuser can help with sleep and relaxation . A WEIGHTED BLANKET (not heavier than about 15 lbs) can be extremely soothing especially after a high-stres s day. It provides deep propriocep tive input to the joints and encourages the natural release of melatonin. It improves sleep quality and sleep maintenanc e and can improve mood regulation . Discontinu e or try a yarn spooler blanket if you find it uncomforta ble for any reason. [email or web address] w.target.c om/c/weigh favian-blanke ts-bedding -home/-/N- 0z47r [id number] Darcie Moses MD Main Office [address] [place] [address] 03/11/2024 12:04:04 03/11/2024 13:29:01 Perimenopausal disorder 446306501 N95.9 - Patient currently on estrogen patch 0.05 mg and progestero ne 100 mg.- Reports persistent fatigue and difficulty falling asleep; initial response to progestero ne was positive but has since diminished .- Plan to increase progestero ne to 200 mg daily, administer ed as two 100 mg capsules at bedtime.- Educated patient on potential side effects of increased progestero ne, including drowsiness .- Advised patient to monitor for excessive drowsiness and to revert to previous dose if intolerabl e.- Follow-up scheduled for May 06 to reassess symptoms and treatment efficacy.- Patient agrees with the treatment plan and understand s the instructio ns. The patient is experienci ng significan t symptoms related to hormonal changes that impact their quality of life and ability to function profession ally and/or personally . We reviewed lifestyle modificati ons, integrativ e therapies, hormonal options as well as other medication s used to treat common menopausal symptoms. Pt was informed that, as with any drug, there are some potential risks associated with HRT. We discussed that some types of HRT may increase the risk of heart attack, stroke, and blood clots. Patient is counseled on concerning signs and symptoms and instructed to immediatel y seek care if these develop. We discussed potential health risks that may be associated with HRT including risks related to breast cancer, uterine cancer, gallbladde r disease, dementia and others. Many of these concerns are related to older types of hormones that are no longer recommende d today and some of these concerns differ depending on the component of hormones (estrogen vs progestero ne) and the mode of delivery. After review of the potential benefits of HRT, the alternativ es and the risks of therapy this patient prefers to continue with HRT. Based on this shared decision making HRT therapy will be continued. Fatigue 35170506 R53.83 - Persistent fatigue despite current hormone replacemen t therapy.- Discussed potential benefit of increasing progestero ne to improve sleep quality, which may alleviate fatigue.- Advised patient to continue current estrogen patch dose and reassess in 6-8 weeks.- Patient to monitor energy levels and report any significan t changes. Vitamin D deficiency 347 57446 E55.9 - Recent lab results show vitamin D level at 39.6 ng/mL, which is on the lower end of normal.- Recommende d resuming over-the-c ounter vitamin D supplement ation.- Plan to recheck vitamin D levels in 8-12 weeks to monitor for improvemen t.- Educated patient on the importance of maintainin g adequate vitamin D levels for overall health and potential impact on energy levels. [id number] Stefanie Galvan NP Main Office [address] [place] [address] 05/06/2024 12:06:06 05/06/2024 19:36:49 Perimenopausal disorder 468156442 N95.9 - Current symptoms include sporadic insomnia, hot sweats, and mood changes.- Progestero ne 200 mg has been continued as it has shown some benefit in managing symptoms.- Educated patient on the potential benefits of magnesium glycinate for sleep improvemen t.- Advised patient to maintain good sleep hygiene, including avoiding screen time before bed and abstaining from alcohol.- Follow-up scheduled in 3 months to reassess symptoms and hormone levels. Vitamin D deficiency 559 30526 E55.9 - Patient reports feeling more energetic during the day with current vitamin D supplement ation but experience s a crash period between 5 and 7 PM.- Last vitamin D level check was in December; recheck ordered.- Lab order to be emailed to the patient for [facility].- Follow-up in 3 months to review lab results and adjust supplement ation if necessary. Insomnia 431962641 G47.0 0 - Insomnia remains sporadic with periods of poor sleep followed by attempts to catch up on missed sleep.- Magnesium glycinate 200-400 mg over-the-c ounter recommende d to aid sleep.- Advised patient on the importance of good sleep hygiene, including avoiding screen time before bed and managing stress.- Patient educated on the difference between magnesium citrate (for constipati on) and magnesium glycinate (for sleep).- Follow-up in 3 months to evaluate the effectiven ess of magnesium glycinate and overall sleep quality. COMPLEMENT KARI SUPPORT FOR SLEEP MELATONIN: 1mg can help with sleep onset, as a supplement , or from Sour Gee juice. MAGNESIUM GLYCINATE: 300-500 mg helps greatly with sleep quality when taken before bed. It calms the nervous system. In higher doses it is also a great laxative - but if you are having loose stools either take a smaller dose, or split the dose between morning and evening. NATURAL LAVENDER ESSENTIAL OIL in a diffuser can help with sleep and relaxation . A WEIGHTED BLANKET (not heavier than about 15 lbs) can be extremely soothing especially after a high-stres s day. It provides deep propriocep tive input to the joints and encourages the natural release of melatonin. It improves sleep quality and sleep maintenanc e and can improve mood regulation . Discontinu e or try a yarn spooler blanket if you find it uncomforta ble for any reason. https://Clipabout w.target.c om/c/weigh favian-blanke ts-bedding -home/-/N- 0z47r Health Concerns Section Related Observation LastModified by Organization Detai ls LastModified Time None Recorded Concern Status LastModified by Organization Details LastModified Time None Recorded Advance Directives Directive None Recorded Payers Encounter Date Sequence Insurance Name Policy Number Policy Murphy Covered Member ID Murphy Member ID Guarantor Name 01/01/2024 1 [place] 111 Nneka Dailey Blaise [id number] Nneka Welsh 01/29/2024 1 [place] 111 Nneka Dailey Blaise [id number] Nnekagautam Welsh 03/11/2024 1 [place] 111 Nneka Dailey Blaise [id number] Nnekagautam Welsh 05/06/2024 1 [place] 111 Nneka Welsh [id number] Nneka Welsh Notes Date Note Type Note Provider Name and Address Organization Details Recorded Time 01/01/2024 text/html Patient is a 43 year old female presenting with concerns about hormonal imbalance, possible menopause, mood changes, weight gain, and other symptoms following a hysterectomy and removal of the right ovary a year ago. Hormonal Imbalance and Menopause:- Patient underwent a hysterectomy and right ovary removal due to a large fibroid a year ago.- Since the surgery, patient has been experiencing symptoms suggestive of hormonal imbalance and possible menopause.- Symptoms have worsened since the beginning of the year.- Patient has a history of frequent cysts and multiple hospital visits post-surgery.- Patient is currently on Humira for Hydradenitis supurativa. Weight Gain:- Patient reports gaining about 10 to 15 pounds since the surgery, primarily in the midsection. Mood Changes:- Patient reports experiencing mood changes, severe depression, and severe anxiety.- Depression and anxiety have been situational in the past, not requiring long-term medication. Hot Flashes and Night Sweats:- Patient experiences mild hot flashes and night sweats, not very frequently but intense enough to cause difficulty in cooling down. Sleep Disturbances and Fatigue:- Patient reports trouble sleeping through the night, being wide awake despite feeling completely fatigued during the day. Brain Fog:- Patient reports experiencing brain fog. Skin and Hair Changes:- Patient reports changes in hair texture and worsening skin conditions.- Patient has a history of acne and is currently experiencing rashes, flushing, and dry skin, despite previously having oily skin. Libido and Vaginal Dryness:- Patient reports moderate changes in libido and vaginal dryness. Joint Pain:- Patient reports experiencing joint pain. Vitamin D Deficiency:- Patient has a history of vitamin D deficiency and is currently on a supplement, although not taken consistently. PMHx:- Hidradenitis suppurativa- Vitamin D deficiency PSHx:- Hysterectomy (1 year ago)- Right Oophorectomy (1 year ago) Current Meds:- Humira- Vitamin D supplement Virtual Visit AttestationModality: VideoProvider Location: HomePatient State: {{AL AK AZ AR CA CO C T DE DC FL GA HI ID I L IN [place] MARKUS* ME NJ MN MS MO MT NE NV NH NJ NM NY NC ND OH OK OR PA RI SC SD TN TX UT [place]}}[{{? * }}]I have obtained consent from the patient for use of autoscribe. Date of LastMammogram: 08/26/2023 She is currently using {{ hysterectomy#}} for contraception.DAMARIS NOYOLA INTAKE - NEW PATIENTChief Complaint:Two primary symptoms: Mood changes, Weight gainInterested in discussing: Hormone replacement therapy (HRT)MRS - Symptom Severity:Hot Flashes and Night Sweats: MildMoodiness, Anxiety and Depression: ModerateWeight and Body Changes: ModerateTrouble Sleeping: ModeratePeriod Problems: NonePainful Sex, Vaginal Dryness and Libido: ModerateBrain Fog and Memory: ModerateSkin and Hair Changes: ModerateJoint Pain, Bone Loss and Fracture Risk: Moderate Screener:DEBBIE-7 Score = 20 (Severe Anxiety)DEBBIE-7 Patient Responses: Feeling nervous, anxious, or on the edge: Nearly every day, Not being able to stop or controlworrying: Nearly every day, Worry too much about different things: Nearly every day, Trouble relaxing: Nearly everyday, Being so restless that it's hard to sit still: More than half the days, Becoming easily annoyed or irritable: Nearlyevery day, Feeling afraid as if something awful might happen: Nearly every day, PHQ-8 Score = 22 (Severe Depression)PHQ-8 Patient Responses: Little interest or pleasure in doing things: Nearly every day, Feeling down, depressed, orhopeless: Nearly every day, Trouble falling or staying asleep, or sleeping too much: Nearly every day, Feeling tired orhaving little energy: Nearly every day, Poor appetite or overeating: Nearly every day, Feeling bad about yourself (orthat you are a failure or have let yourself or your family down): Nearly every day, Trouble concentrating on things, suchas reading the newspaper or watching television: Nearly every day, Moving or speaking so slowly that other peoplecould have noticed: Several days,Dementia/Cogniti ve Decline [place]: [place] [address], [place], [address], [facility] 01/01/2024 14:36:41 01/29/2024 text/html Patient is a 43 year old female presenting for a follow-up visit to discuss her response to hormone replacement therapy (HRT) with an estrogen patch and progesterone, and to review recent lab results. Hormone Replacement Therapy:- Patient was started on an estrogen patch and progesterone since the last visit.- She reports an initial increase in energy in the first two weeks of therapy, which then leveled out, and she started feeling tired again.- She notes an improvement in her mood changes, stating she can fake being nice to people again. - She reports some improvement in sleep, with difficulty falling asleep only about two days out of the week.- She also reports a slight improvement in brain fog, feeling a bit more focused.- She continues to experience mild hot flashes, which occur more frequently when she is active and cause her to feel hot for extended periods. Lab Results:- Patient's recent lab results were all normal.- Her vitamin D level is on the lower side of normal at 39.6 (normal range: 30-100).- She had previously been taking vitamin D 10,000 units with K daily, but stopped after her psychiatry instructor found her vitamin D levels were high.- She has not restarted the vitamin D supplement since then. 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 * }}]I have obtained consent from the patient for use [place] [address] [facility], [place], [address], [facility] 01/31/2024 03:41:59 03/11/2024 text/html Patient is a 43 year old female presenting with persistent fatigue and difficulty falling asleep despite being on hormonal replacement therapy. Hormonal Replacement Therapy:- Patient was last seen on January 28, at which time her estrogen patch dosage was increased.- She is currently on a 0.05 estrogen patch and 100mg of progesterone.- Despite the adjustment in her hormonal replacement therapy, she reports continued exhaustion and is unsure if she needs a further increase in her dosage. Sleep Issues:- Patient reports that the progesterone, which initially helped her fall asleep, is no longer effective.- She is having difficulty falling asleep, which may be contributing to her persistent fatigue. Vitamin D Levels:- Patient's recent labs showed her vitamin D levels to be on the lower end of normal.- She has an orfj-zij-hmynolt supplement but has not been taking it consistently due to previous labs showing high levels.- She does not recall if having high vitamin D levels previously helped with her energy levels.- She reports being constantly tired, but does not feel as bad as when her vitamin D levels were extremely low and required a dosage of 50,000 units.- She is considering restarting her jpxx-gnp-dvzkehk vitamin D supplement. Follow-up Plan:- Patient is open to increasing her progesterone dosage to help with her sleep issues.- She is considering maintaining her current estrogen patch dosage for another 6 to 8 weeks to see if it helps with her energy levels.- She plans to follow up in 8 weeks to reassess her symptoms and treatment plan. PMHx:- Fatigue Current Meds:- Estrogen patch 0.05- Progesterone 100mg Virtual Visit Attestation Modality: Video Provider Location: Home Patient Location: Home Patient State: {{AL AK AZ AR CA CO C T DE DC FL GA HI ID I L IN [place] LA MARKUS* ME NJ MN MS MO MT NE NV NH NJ NM NY NC ND OH OK OR PA RI SC SD TN TX [facility]}} [place] [address], [place], [address], [facility] [employer] 03/13/2024 22:25:34 05/06/2024 text/html Patient is a 43 year old female presenting with concerns about sporadic insomnia, mood swings, and low energy levels. Insomnia:- Patient reports experiencing sporadic insomnia, with periods of not being able to sleep followed by days of catching up on missed sleep.- This pattern of sleep disturbance is not typical for the patient.- She has been taking progesterone 200mg to help with sleep, which she reports has been somewhat helpful but has not completely resolved the issue.- She also mentions that screen time before bed may be contributing to her sleep issues. Mood and Energy Levels:- Patient reports that her mood has been stable.- She has been taking Vitamin D and reports feeling more energetic during the day, but experiences a crash period between 5 and 7 PM.- She mentions that her sleep issues may be worse during periods of increased stress, such as when her son and his girlfriend were in labor recently. Hormone Therapy:- Patient has been on progesterone 200mg since her last visit in February.- She reports some improvement in her sleep with this medication, but it has not completely resolved her insomnia. Supplements:- Patient is not currently taking magnesium, but is open to trying magnesium glycinate for sleep, as recommended by the clinician.- She has been taking Vitamin D and reports feeling more energetic during the day, but still experiences a crash period in the evening. Lab Tests:- Patient's Vitamin D levels were last checked in December, and she is due for a recheck.- She has been taking Vitamin D supplements and reports feeling more energetic during the day since starting them. PMHx:- Insomnia Current Meds:- Progesterone 200 mg- Vitamin D Social Hx:- Alcohol Use: Denies alcohol use- Occupation: Works from home- Number of children: Has a son Virtual Visit Attestation Modality: Video Provider Location: Home Patient Location: Home Patient State: {{AL AK AZ AR CA CO C T DE DC FL GA HI ID I L IN [place] MARKUS* ME NJ MN MS MO MT NE NV NH NJ NM NY NC ND OH OK OR PA RI SC SD TN TX UT [facility] [place]}} Stefanie Galvan, SHAYLA [address], [place], [address], [facility] [employer] 05/06/2024 14:13:13 OBGyn Episode No OBEpisode recorded.
--- OUTSIDE RECORDS SUMMARY | 2024-06-23 15:25 | XMS_ITS | Data Portability ---
Author Organization [facility], [address] Address [address] [place] [address] Care Team Providers Care Quarter Lining Smoother Name Role Phone JAMESON EPPS Primary Care Provider Assessment No assessment recorded. Plan of Treatment Reminders Order Date Submit Date Provider Last Modified By Organization Details Last Modified Time Details Appointments None recorded. Lab streptococc us group A, culture, throat 2022 023 [place] [facility], [address] [place] [address], [place], [address], 3 08:07:35 Referral None recorded. Procedures None recorded. Surgeries None recorded. Imaging None recorded. Medication Orders cephalexin [address] [facility][id number], [address] [place], [address], 3 11:50:14 amoxicillin 8[address] [facility] #[id number], [address] [place], [address], 3 11:25:16 Patient TargetsNo targets recorded. Patient Instructions Encounter Date Encounter Id Patient Instructions Last Modified By Organization Details Last Modified Time 07/21/2022 [id number] Acute Sinusitis: Care Instructions romina Not available 07/21/2022 13:29:44 Discussed potential complications and intervention options with the patient during this visit. Patient was instructed to increase room humidity and eat soft bland foods. Raising the head of the bed, lozenges, and saline nasal spray were also recommended. Patient may take ibuprofen or acetaminophen as needed for pain control. If the issue does not improve in 24-48 hours, patient should return to the clinic for follow-up. You have been prescribed an antibiotic for your bacterial illness. While antibiotics are sometimes necessary, they can have a negative impact upon the healthy bacteria within your body. This can result in diarrhea/loose stools and yeast infections. By taking probiotics during the course of your prescription, you can lessen the probability of these undesirable side effects. Probiotics can be purchased hwqz-zzh-ngarzks at your pharmacy in the form of capsules or gummies. They are also found naturally in yogurt with live cultures. Mix salt into a quarter-glass of warm water and stir until no more salt will dissolve. Gargle and spit out the salt water mixture one mouthful at a time until the glass is empty. Repeat 4 times daily. Hand hygiene is a avila measure for preventing spread to others, especially after coughing or sneezing and before preparing foods or eating, and we remind all patients of its importance. Please discard of your current tooth brush and get a new one after being on the antibiotic for 3-4 days to prevent reinfection. You are considered contagious until you have the antibiotic for 24 hours. We have sent out for lab results, typically take 3-5 days to return. [email or web address] Not available 07/21/2022 13:29:31 11/05/2022 [id number] cellulitis: care instructions [email or web address] Not available 11/05/2022 11:51:50 Reason for Referral None Reported. Results Created Date Observation Date Name Description Value Unit Range Abnormal Flag Note LastModifiedBy Organization Detail LastModifiedTime 07/22/19 23 07/24/2022 BETA STREP GP A CULTU RE beta strep gp A culture NEGATI VE Refer ence Range : Negat billie Not Available [facility] ([facility]) [address], [place], [address], 07/24/2022 08:07:34 Result Notes None recorded. Problems No Known Problems Procedures Surgical History Date Name Laterality Status Provider Name and Address Organization Details Recorded Time 04/27/19 19 partial hysterectomy completed XU REDMONDO PA - [facility] 07/21/2022 12:35:31 removal of silastic tubes from ear completed XU DEPINTO PA - [facility] 07/21/2022 12:35:18 ligation of fallopian tube completed XU ZACARIAS PA - [facility] 07/21/2022 12:35:23 Imaging Results None recorded. Procedure Notes None recorded. Medical Equipment None Reported. Allergies No known drug allergies Medications Name Sig Start Date Stop Date Status Note LastModified by Organization Details LastModified Time cephalexin 500 mg capsule Take 1 capsule 3 times a day by oral route for 10 days. 023 active Not Available Not Available Not Avai lable Vitals Date Recorded Body height Body mass index (BMI) Body weight Pain severity - 0-10 verbal numeric rating [Score] - Reported Oxygen saturation Oxygen saturation in Arterial blood by Pulse oximetry Heart rate Respiratory rate Body temperature Systolic blood pressure Diastolic blood pressure Provider Name and Address Organization Details Last Updated DateTime 3 157.48 cm 26.5 kg/m2 85590.8 9 g 6 96 % 96 % 97 /min 18 /min 97.2 [degF] 127 mm[Hg] 80 mm[Hg] XU ZACARIAS PA - [facility] 12:40:58 Date Recorded Body height Body mass index (BMI) Body weight Pain severity - 0-10 verbal numeric rating [Score] - Reported Respiratory rate Oxygen saturation Oxygen saturation in Arterial blood by Pulse oximetry Heart rate Body temperature Systolic blood pressure Diastolic blood pressure Provider Name and Address Organization Details Last Updated DateTime 3 157.48 cm 26.5 kg/m2 90154.8 9 g 3 18 /min 100 % 100 % 77 /min 98.1 [degF] 120 mm[Hg] 80 mm[Hg] Coreen Elizabeth PA - [facility] 11:26:38 Social History Question Answer Notes LastModified by Organizat ion Details LastModified Time Tobacco Smoking Status Never Smoker XU humphrey PA - [facility] 07/21/2022 12:34:41 What Is Your Level Of Alcohol Consumption? None Information not available 07/21/2022 Do You Use Any Illicit Or Recreational Drugs? No Information not available 07/21/2022 Have You Recently Traveled Abroad? No [email or web address] Information not available 11/05/2022 Do You Or Have You Ever Used Any Other Forms Of Tobacco Or Nicotine? No Information not available 07/21/2022 Sex: Unknown Functional Status None recorded. Mental Status None recorded. Family History Relationship Description Onset Age of this Age Resolved Age Notes LastModified by Organization Details LastModified Time Father No current problems or disability Not available 07/21 12:34:30 Mother No current problems or disability Not available 07/21 12:34:30 Medical History No medical history recorded. Gynecological HistoryNo gynecological history recorded. Obstetrics History GPAL:G 0 P 0 0 0 0 Past Encounters Encounter ID Performer Location Encounter Start Date Encounter Closed Date Diagnosis/Indication Diagnosis SNOMED-CT Code Diagnosis ICD10 Code Diagnosis Note [id number] [place] [address] [address] 07/21/2022 10:30:17 07/21/2022 13:31:29 Streptococcal sore throat 98779573 J02.0 [id number] Koffi Rios [place] [address] [address] 11/05/2022 11:17:47 11/05/2022 11:54:21 Cellulitis 516143002 L03.90 Apply warm compresses over the abrasion at the hair line.Carter nue Antihistam ine which may help with the swelling.A lso Ibuprofen for the pain as neededDisc ussed signs and symptoms of worsening such as increased swelling, redness, drainage, fever, or red streaks that travel away from the wound, changes in vision, dizziness or worsening of the headache.P atient agrees with plan Health Concerns Section Related Observation LastModified by Organization Detai ls LastModified Time None Recorded Concern Status LastModified by Organization Details LastModified Time None Recorded Advance Directives Directive None Recorded Payers Encounter Date Sequence Insurance Name Policy Number Policy Murphy Covered Member ID Murphy Member ID Guarantor Name 07/21/2022 1 [facility] [employer] - [employer] PRIOR TO 2024 (PPO) Nneka Welsh [id number] Welsh 11/05/2022 1 [facility] [employer] - [employer] PRIOR TO 2024 (PPO) Nneka Welsh [id number] MEYER Nneka Welsh Notes Date Note Type Note Provider Name and Address Organization Details Recorded Time 3 text/html Sore throatReported bypatient.Source of patient informationInformation obtained from patient; Patient arrived at Urgent Care ambulatory; learning styles: auditory Location:throat Severity:mild Quality:sharp; burning Onset/Timin days Associated Symptoms:no sputum production; no shortness of breath; no wheezing; no vomiting; no nausea;sore throat;hoarseness;coughing ;sinus pain/ congestion Context:no foreign travel; non-smoker;sick contact Modifying Factors:exposed to Strep non household Carlton Cameron NP [address] [place], [address], [place] [facility] - [facility] 07/21/2022 13:30:33 3 text/html Skin Redness UCReported bypatient.Location:face Quality:painful;erythemato us;raised;warm Severity:improving; Improved after taking antihistamine yesterday Koffi Rios MD [address] [place], [address], [place] PA - [facility] 11/06/2022 09:40:44 OBGyn Episode No OBEpisode recorded.
== END 2024-06-23 13:43 | disposition home or self-care (01) ==
PROVIDERS: PCP Physician Assistant; Visit Provider Physician Assistant
DX: Z00.00 Encounter for general adult medical examination without abnormal findings (principal); L73.2 Hidradenitis suppurativa; E55.9 Vitamin D deficiency, unspecified

== ENCOUNTER 2024-06-23 13:46 | Outpatient (REF) | payer BC, SELFPAY ==
[2024-06-23 18:22] LABS: MANUAL DIFF FLAG NO
[2024-06-23 18:32] LABS: Basophils Absolute Auto 0.1 X10*3/uL (0.0-0.2); Basophils Percent Auto 0.6 % (0-2); Eosinophils Absolute Auto 0.3 X10*3/uL (0.0-0.4); Eosinophils Percent Auto 3.4 % (0-4); Hematocrit 38.7 % (37.0-47.0); Hemoglobin 13.6 g/dl (12.0-16.0); Imm Gran Abs Auto 0.04 X10*3/uL (0.00-0.03); Imm Gran Pct Auto 0.5 % (0.0-0.4); Lymphocytes Absolute Auto 2.2 X10*3/uL (1.2-4.9); Lymphocytes Percent Auto 26.9 % (20-40); Mean Corpuscular HGB Conc 35.1 g/dl (31.0-35.0); Mean Corpuscular Hemoglobin 30.8 pg (27.0-33.0); Mean Corpuscular Volume 87.8 fL (80.0-98.0); Mean Platelet Volume 10.6 fL (9.4-12.3); Monocytes Absolute Auto 0.5 X10*3/uL (0.1-1.2); Monocytes Percent Auto 5.6 % (2-11); Neutrophils Absolute Auto 5.2 x10*3/uL (2.0-8.3); Platelet Count 391 X10*3/uL (160-400); Red Blood Count 4.41 X10*6/uL (4.20-5.50); Red Cell Distribution Width 12.9 % (11.0-16.0); White Blood Count 8.2 X10*3/uL (4.8-10.8)
[2024-06-23 18:54] LABS: Alanine Aminotransferase 19 U/L (0-31); Albumin Level 4.3 g/dL (3.5-5.0); Alkaline Phosphatase 78 U/L (39-117); Anion Gap 14 (12-20); Aspartate Amino Transferase 19 U/L (5-31); Bilirubin Total 0.5 mg/dL (0.0-1.0); Blood Urea Nitrogen 20 mg/dL (9-16); Calcium 9.9 mg/dL (8.4-10.2); Carbon Dioxide 20 mmol/L (22-29); Chloride 109 mmol/L (96-108); Cholesterol 227 mg/dL (<200); Estimated Glomerular Filt Rate > 60; Glucose Fasting 86 mg/dL (60-99); HDL Cholesterol 45 mg/dL (>40); LDL Cholesterol Calculated 113 mg/dL (<100); Magnesium 1.8 mg/dL (1.6-2.6); Potassium 4.1 mmol/L (3.3-5.1); Sodium 139 mmol/L (135-145); Triglycerides 345 mg/dL (<150)
[2024-06-23 18:59] LABS: TSH reflex Free T4 1.49 uIU/mL (0.32-4.0); Vitamin D 25-OH Total 60.3 ng/mL (>30)
[2024-06-23 19:30] LABS: Folate 9.9 ng/mL (> or = 4.0); Vitamin B12 375 pg/mL (200-900)
[2024-06-26 13:48] LABS: TS Negative Control Passed; TS Panel A 0; TS Panel B 0; TS Positive Control Passed; TSpotTB Negative (Negative)
== END 2024-06-23 13:47 | disposition home or self-care (01) ==
LOC: HO.WFDLDS 13:46
PROVIDERS: Visit Provider Physician Assistant
DX: Z00.00 Encounter for general adult medical examination without abnormal findings (principal); L73.2 Hidradenitis suppurativa; E55.9 Vitamin D deficiency, unspecified; Z11.1 Encounter for screening for respiratory tuberculosis
CPT/HCPCS: 36415; 80053; 80061; 82306; 82607; 82746; 83735; 84443; 85025; 86481; 96127